=== PATIENT | male | born 1965 | race Caucasian/White ===

== ENCOUNTER → 2020-07-16 | Outpatient (CLI) | payer BC ==
[2020-07-16 18:10] LABS: APPEARANCE, URINE CLEAR (CLEAR); BACTERIA, URINE AUTO NEGATIVE (NEGATIVE); BILIRUBIN, URINE AUTO NEGATIVE (NEGATIVE); BLOOD, URINE BLOOD NEGATIVE (NEGATIVE); COLOR, URINE YELLOW (YELLOW); GLUCOSE, URINE (UA) AUTO NEGATIVE (NEGATIVE); KETONE, URINE AUTO NEGATIVE (NEGATIVE); LEUKOCYTE ESTERASE, URINE AUTO NEGATIVE (NEGATIVE); MUCUS, URINE SMALL (NEGATIVE); NITRITE, URINE AUTO NEGATIVE (NEGATIVE); PROTEIN, URINE AUTO NEGATIVE (NEGATIVE); RBC, URINE AUTO 0 /HPF (0-3); SQUAMOUS EPITHELIAL CELL UR AU 0 /HPF (0-6); UROBILINOGEN, URINE AUTO 0.2 mg/dL (0.0-2.0); WBC, URINE AUTO 0 /HPF (0-3)
== END ==
LOC: M LAB 16:22
PROVIDERS: ATTEND Urology
DX: R97.20 Elevated prostate specific antigen [PSA] (principal)

== ENCOUNTER → 2020-08-26 | Outpatient (CLI) | payer BC, SELFPAY ==
--- NOTE | 2020-08-26 12:57 | REPPI ---
INDICATION: ELEVATED PSA Elevated prostate specific antigen levels. COMPARISON: None. TECHNIQUE: Transrectal ultrasound examination. FINDINGS: Examination demonstrates enlarged heterogeneous gland with multiple scattered small cysts and calcifications. Gland measures 5.3 x 4.5 x 5.7 cm (71.3 ml). Left mid lateral nodule measuring 7 x 4 mm identified. Ultrasound-guided Biopsy performed by Dr. Silva included 12 passes with 18 gauge needle after the administration of local anesthetic. No obvious complications during examination as reported by garnett feeder. IMPRESSION: 1. Heterogeneous enlarged prostate gland with single nodule. 2. Status post biopsy. <Electronically signed by Noel Vazquez > 08/26/20 0499
== END ==
LOC: M SMT PRO 10:57
PROVIDERS: ATTEND Urology
DX: C61 Malignant neoplasm of prostate (principal)
CPT/HCPCS: 76872; G0416

== ENCOUNTER 2020-10-15 07:30 | Inpatient (IN) | payer BC ==
[~2020-10-15] VITALS: Ht 170.2 cm; Wt 118.8 kg
[~2020-10-15 07:30] MED LIST: HEPARIN SOD (PORCINE) 5000UNITS/ML 1ML VIAL/SYRINGE SQ ONE; LISI10TA22 PO; LR 1,000 ML IV ONE; ceFAZolin SOD 2 GM in IV 1 EA IV ONE
[2020-10-15] MEDS ORDERED: LIDOCAINE 2% 100MG/5ML SDV (FOR ANES.) As Ordered ONE (10:30)
[2020-10-15] MEDS ORDERED: propofoL 200 MG/20 ML VIAL As Ordered ONE ×2 (10:30→16:06)
[2020-10-15] MEDS ORDERED: ROCURONIUM BROMIDE 50 MG/5 ML VIAL As Ordered ONE ×2 (10:30→18:45)
[2020-10-15] MEDS ORDERED: fentaNYL 250 MCG/5 ML INJECTION (J3010) As Ordered ONE (10:30)
[2020-10-15] MEDS ORDERED: MIDAZOLAM INJ 2MG/2ML VIAL (J2250 PER 1MG) As Ordered ONE (10:30)
--- OUTSIDE RECORDS SUMMARY | 2020-10-15 10:40 | CCD ---
Author Author [facility] er Organization [facility] er Address Unknown Phone Unavailable Care Team Providers Care Plant Inspector Name Role Phone Yola Andre Unavailable PROBLEMS Type Condition ICD9-CM Code LEL77-DC Code Onset Dates Condition S tatus W/U Status Risk SNOMED Code Notes Problem Diverticulitis K57.92 Active confirmed 66680 6006 Problem Type 2 diabetes mellitus wit hout complication, without long-term current use of insulin E11.9 Active confirmed 718748264 Problem Dyslipidemia E78.5 Active confirmed 7015552 07 Problem Acute back pain M54.9 Active confirmed 1618 07218 Problem Environmental allergies Z91.09 Active confirmed 871763071 Problem Essential hypertension I10 Active confirmed 56328239 Problem Vitamin D deficiency E55.9 Active confirmed 26138001 ALLERGIES Allergen (clinical drug ingredient) Drug/Non Drug Allergy do cumented on EMR Reaction Allergy Type Onset Date Status Woll Unknown Non Drug Allergy Active ENCOUNTERS from 1966 to 2020-09-27 Encounter Location Date Provider Diagnosis [address] [address] Sep, Yola Andre Pre-operative clearance Z01. 818 and Type 2 diabetes mellitus without complication, without long-term current use of insulin E11.9 IMMUNIZATIONS Vaccine Route Administration Date Status Influenza (FluLaval 6+ mos) >18 yrs IM Intramuscular Jun 13 0 Administered Pneumococcal (PPSV 23) 19 or > IM Intramuscular Jun 13, 2020 Administered SOCIAL HISTORY Sex Assigned At : Social History Observation Description Sex Assigned At Unknown DAST-10 Question Answer Notes Total Score: 0 Interpretation: No problems reported REASON FOR REFERRAL No Information VITAL SIGNS Height 67 in Sep, Height-cm 170.18 cm 04 Feb, 2021 Weight 274 lbs Sep, Weight-kg 124.29 kg Sep, BMI 42.91 kg/m2 Sep, Temperature 97.8 degrees Fahrenheit Sep, Heart Rate 88 /min Sep, Respiratory Rate 18 /min Sep, Oximetry 96 % Sep, Blood pressure systolic 122 mm Hg Sep, Blood pressure diastolic 76 mm Hg Sep, MEDICATIONS Medication SIG (Take, Route, Frequency, Duration) Notes Start Da te End Date Status Lisinopril 10 MG 1 tablet Orally Once a day for 90 days Active Vitamin B12 100 MCG 1 tablet Orally Once a day Active Multi Vitamin Daily Activ e Vitamin D 25 MCG (1000 UT) 1 tablet Orally Daily Active Metformin HCl 1000 MG 1 tablet with a meal Orally twice a day fo r 30 day(s) May, Active Vitamin C 500 MG 1 tablet Orally Once a day Active PROCEDURES No Information RESULTS Component Value Reference Range CHEM 7 PROFILE Reviewed date:09/25/2020 16:30:31 Interpretation: Performing Lab: GLU 195 70-110 BUN 18 7-23 CRE 0.997 0.500-1.300 GFR > 60 CHLORIDE 104 99-110 NA 137 136-147 POTASSIUM 4.4 3.5-5.1 TCO2 25 20-33 ANION GAP 12.4 10.0-20.0 CA 8.8 8.3-10.7 HEMOGLOBIN A1C Reviewed date:09/25/2020 15:22:28 Interpretation: Performing Lab: HbA1C 6.40 3.8-5.6 EKG 07074 Reviewed date:09/25/2020 16:30:31 Interpretation: Performing Lab: CBC Reviewed date:09/26/2020 16:21:40 Interpretation: Performing Lab: WBC 9.55 4.0-10.5 RBC 5.17 4.70-6.00 Hemoglobin 15.2 14.0-18.0 Hematocrit 45.5 42.0-52.0 MCV 88.0 81.0-99.0 MCH 29.4 27.0-31.0 MCHC 33.4 32.7-35.6 RDW 13.4 11.5-14.0 Platelet count 239 150-450 MPV 10.6 6.9-9.5 Neutrophils 56.5 34-64 Lymphocytes 29.9 25-45 Monocytes 7.0 1.7-10.6 Eosinophils 5.2 0.4-7.0 Basophils 1.2 0.1-2.0 Imm. Gran. 0.2 0.1-2.0 Abs. Neutro. 5.39 1.2-7.6 Abs. Lymph. 2.86 1.0-3.5 Abs. Tom [place]. 0.67 0.1-1.0 Abs. Eosin. 0.50 0.1-0.7 Abs. Baso. 0.11 0.0-0.1 Abs. Imm. Gran. 0.02 0.0-0.1 ANRBC% 0 0 REASON FOR VISIT PRE OP RADICAL PROSTECTIMY MEDICAL (GENERAL) HISTORY Type Description Date Medical History Environmental allergies Medical History Diverticulitis Medical History Hypertension Surgical History Appendectomy Surgical History Colon resection Hospitalization History See surgical list Goals Section No Information Health Concerns No Information MEDICAL EQUIPMENT No Information MENTAL STATUS No Information FUNCTIONAL STATUS No Information ASSESSMENTS Encounter Date Diagnosis Assessment Notes Treatment Notes Treatm ent Clinical Notes Sep, Pre-operative clearance (ICD-10 - Z01.818) DO NOT EAT OR DRINK ANYTHING ON THE DAY OF YOUR SURGERY/ PROCEDURE EXCEPT YOUR MEDICATIONS WITH A SIP OF WATER Hold all herbal and over the counter medications 7 days prior to surgery and resume the day following surgery Hold aspirin 3-7 days prior to surgery and resume the day following surgery based on the discretion and guidance of the surgeon You may continue Lisinopril on the day of surgery Hold Metformin on the day of surgery -Physical exam is remarkable for a male with elevated BMI; vitals are stable -The patient has a calculated Revised Cardiac Risk Index Score of 0 (Class I) suggestive of 3.9% risk of a major cardiac event during surgery -Relevant labs have been ordered and reviewed for pre-op clearance -EKG was reviewed today and significant for sinus rhythem with HR of 80 -Based on the past medical history and ongoing chronic conditions, this patient is at average risk for the planned procedure and is currently medically optimized for the urological procedure under general anesthesia -Medications to be held prior to procedure were discussed in detail with the patient and given as part of written instructions -Patient verbalized understanding the above plan Sep, Type 2 diabetes mellitus wit hout complication, without long-term current use of insulin (ICD-10 - E11.9) PLAN OF TREATMENT Treatment Notes Assessment Notes Clinical Notes Pre-operative clearance DO NOT EAT OR DRINK ANYTHING ON THE DAY OF YOUR SURGERY/ PROCEDURE EXCEPT YOUR MEDICATIONS WITH A SIP OF WATERHold all herbal and over the counter medications 7 days prior to surgery and resume the day following surgeryHold aspirin 3-7 days prior to surgery and resume the day following surgery based on the discretion and guidance of the surgeonYou may continue Lisinopril on the day of surgeryHold Metformin on the day of surgery -Physical exam is remarkable for a male with elevated BMI; vitals are stable-The patient has a calculated Revised Cardiac Risk Index Score of 0 (Class I) suggestive of 3.9% risk of a major cardiac event during surgery-Relevant labs have been ordered and reviewed for pre-op clearance-EKG was reviewed today and significant for sinus rhythem with HR of 80-Based on the past medical history and ongoing c hronic conditions, this patient is at average risk for the planned procedure and is currently medically optimized for the urological procedure under general anesthesia-Medications to be held prior to procedure were discussed in detail with the patient and given as part of written instructions-Patient verbalized understanding the above plan Next Appt Details As scheduled with PCP Reason: Insurance Providers Payer Name Payer Address Payer Phone Insured Name Patient Relati onship to Insured Coverage Start Date Coverage End Date [employer] [address] [address] [place] [address] IRINA ROTHMAN self
--- OUTSIDE RECORDS SUMMARY | 2020-10-15 10:40 | CCD ---
Author Author [facility] er Organization [facility] er Address Unknown Phone Unavailable Care Team Providers Care Tour Counselor Name Role Phone Makenzie Tripathi Unavailable PROBLEMS Type Condition ICD9-CM Code LJT63-MD Code Onset Dates Condition S tatus W/U Status Risk SNOMED Code Notes Problem Diverticulitis K57.92 Active confirmed 54671 6006 Problem Type 2 diabetes mellitus wit hout complication, without long-term current use of insulin E11.9 Active confirmed 881137325 Problem Dyslipidemia E78.5 Active confirmed 3720257 07 Problem Acute back pain M54.9 Active confirmed 1618 85903 Problem Environmental allergies Z91.09 Active confirmed 177000713 Problem Essential hypertension I10 Active confirmed 46328365 Problem Vitamin D deficiency E55.9 Active confirmed 23106616 ALLERGIES Allergen (clinical drug ingredient) Drug/Non Drug Allergy do cumented on EMR Reaction Allergy Type Onset Date Status Woll Unknown Non Drug Allergy Active ENCOUNTERS from 1966 to 2020-09-27 Encounter Location Date Provider Diagnosis [address] [address] Sep, Makenzie Chudasama-Emery IMMUNIZATIONS Vaccine Route Administration Date Status Influenza (FluLaval 6+ mos) >18 yrs IM Intramuscular Jun 13 0 Administered Pneumococcal (PPSV 23) 19 or > IM Intramuscular Jun 13, 2020 Administered SOCIAL HISTORY Sex Assigned At : Social History Observation Description Sex Assigned At Unknown DAST-10 Question Answer Notes Total Score: 0 Interpretation: No problems reported REASON FOR REFERRAL No Information VITAL SIGNS No information MEDICATIONS Medication SIG (Take, Route, Frequency, Duration) [...] a day Active PROCEDURES No Information RESULTS No Results REASON FOR VISIT Labs MEDICAL (GENERAL) HISTORY Type Description Date Medical History Environmental allergies Medical History Diverticulitis Medical History Hypertension Surgical History Appendectomy Surgical History Colon resection Hospitalization History See surgical list Goals Section No Information Health Concerns No Information MEDICAL EQUIPMENT No Information MENTAL STATUS No Information FUNCTIONAL STATUS No Information ASSESSMENTS No Information PLAN OF TREATMENT No Information Insurance Providers Payer Name Payer Address Payer Phone Insured Name Patient Relati onship to Insured Coverage Start Date Coverage End Date [facility] [address] [address] [place] [address] IRINA ROTHMAN T self
--- OUTSIDE RECORDS SUMMARY | 2020-10-15 10:41 | CCD ---
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 Active 2366 36262 Problem Raised prostate specific antigen R97.20 Active 923775184 Problem Prostate cancer C61 Active 516660749 ALLERGIES No Known Allergies ENCOUNTERS from 1965 to 2020-09-13 Encounter Location Date Provider Diagnosis [facility] Urology [address] [place] [address] [place] [address] Aug Faith Breaux Preop testing Z01.818 IMMUNIZATIONS No Information SOCIAL HISTORY Tobacco Use: Social History Observation Description Date Details (start date - stop date) Never Smoker Sex Assigned At : Social History Observation Description Sex Assigned At Unknown Language: Question Answer Notes Languages spoken: Arabic Sexual Hx: Question Answer Notes Had sex in the last 12 months (vaginal, oral, or anal)? Yes Have you ever had an STD? No Prevention Strategies discussed: Other with Women only Use protection? No Alcohol Screening: Question Answer Notes Did you have a drink containing alcohol in the past year? Ye s Points 2 Interpretation Negative How often did you have six or more drinks on one occas ion in the past year? Never (0 points) How many drinks did you have on a typica l day when you were drinking in the past year? 1 or 2 (0 points) How often did you have a drink containing alcohol in t he past year? Two to four times a month (2 points) Tobacco Use: Question Answer Notes Are you a: never smoker REASON FOR REFERRAL No Information VITAL SIGNS No information MEDICATIONS Medication SIG (Take, Route, Frequency, Duration) Notes Start Da te End Date Status Vitamin D3 25 MCG (1000 UT) 1 capsule Orally Once a day for 30 day(s) Active Metformin HCl 500 MG 1 tablet with a meal Orally bid Active Lisinopril 10 MG 1 tablet Orally Once a day for 30 day(s) Active Black Elderberry 50 MG/5ML Orally daily Active Vitamin B12 TR 2000 MCG 1 tablet Orally Once a day for 30 day(s) Active Multi Complete - as directed Orally Active Bactrim DS 800-160 MG 1 tablet Orally as directed- 1 tab the night before biops and 1 tab the morning of Jul, Active Vitamin C 1000 MG 1 tablet Orally Once a day for 30 day(s) Active PROCEDURES No Information RESULTS No Results REASON FOR VISIT Covid Test MEDICAL (GENERAL) HISTORY Type Description Date Medical History DIVERTICULITIS Medical History HTN Medical History DM TYPE 2 Medical History DYSLIPIDEMIA Surgical History APPENDECTOMY 1996 Surgical History COLON RESECTION 2007 Hospitalization History surgeries listed above Goals Section No Information Health Concerns No Information MEDICAL EQUIPMENT No Information MENTAL STATUS No Information FUNCTIONAL STATUS No Information ASSESSMENTS Encounter Date Diagnosis Assessment Notes Treatment Notes Treatm ent Clinical Notes Aug, Preop testing (ICD-10 - Z01.818) PLAN OF TREATMENT Treatment Notes Test Name Order Date Coronavirus 2019 NOSE (Send Out) COVID 2020-09-13 Next Appt Details Provider Name:Jose Vu Ricardo, 08:00:00 AM, [address], [place], [address], Insurance Providers Payer Name Payer Address Payer Phone Insured Name Patient Relati onship to Insured Coverage Start Date Coverage End Date [employer] [place] PPO [phone] [facility] [place] [id number] GIULIANA SANTA self
--- OUTSIDE RECORDS SUMMARY | 2020-10-15 10:41 | CCD ---
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 Active 2366 72626 Problem Raised prostate specific antigen R97.20 Active 396434650 ALLERGIES No Known Allergies ENCOUNTERS from 1965 to 2020-08-28 Encounter Location Date Provider Diagnosis [facility] Urology [address] [place] [address] [place] [address] Aug Josejose Chahaller Raised prostate specific antigen R97.20 IMMUNIZATIONS No Information SOCIAL HISTORY Tobacco Use: Social History Observation Description Date Details (start date - stop date) Never Smoker Sex Assigned At : Social History Observation Description Sex Assigned At Unknown Language: Question Answer Notes Languages spoken: Lao Sexual Hx: Question Answer Notes Had sex [...] REASON FOR REFERRAL No Information VITAL SIGNS Weight 265.4 lbs Aug, Height 67 in Aug, BMI 41.56 kg/m2 Aug, Heart Rate 88 /min Aug, Respiratory Rate 18 /min Aug, Temperature 97.4 degrees Fahrenheit Aug, Oximetry 97% Aug, Blood pressure systolic 132 mm Hg Aug, Blood pressure diastolic 89 mm Hg Aug, MEDICATIONS Medication SIG (Take, Route, Frequency, Duration) Notes Start Da te End Date Status Bactrim DS 800-160 MG 1 tablet Orally as directed- 1 tab the night before biops and 1 tab the morning of Jul, Active Vitamin B12 TR 2000 MCG 1 tablet Orally Once a day for 30 day(s) Active Vitamin D3 25 MCG (1000 UT) 1 capsule Orally Once a day for 30 day(s) Active Lisinopril 10 MG 1 tablet Orally Once a day for 30 day(s) Active Black Elderberry 50 MG/5ML Orally daily Active Metformin HCl 500 MG 1 tablet with a meal Orally bid Active Vitamin C 1000 MG 1 tablet Orally Once a day for 30 day(s) Active Multi Complete - as directed Orally Active PROCEDURES No Information RESULTS No Results REASON FOR VISIT Trus Bx MEDICAL (GENERAL) HISTORY Type Description Date Medical [...] Treatment Notes Treatm ent Clinical Notes Aug, Raised prostate specific antigen (ICD-10 - R97.2 0) PLAN OF TREATMENT Medication Medication Name Sig Start Date Stop Date Bactrim DS 800-160 MG 1 tablet Orally as directed- 1 tab the night before biops and 1 tab the morning of Jul, Treatment Notes Test Name Order Date Pathology Request For Service (Urology Only) 7 Next Appt Details next week for pathology results Reason: Provider Name:Jose Horace Silva, 03:00:00 PM, [address], [place], [address], Insurance Providers Payer Name Payer Address Payer Phone Insured Name Patient Relati onship to Insured Coverage Start Date Coverage End Date [facility] [phone] [facility] [phone] GIULIANA ROTHMAN self
--- OUTSIDE RECORDS SUMMARY | 2020-10-15 10:41 | CCD ---
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 Active 2366 92536 Problem Raised prostate specific antigen R97.20 Active 664120459 ALLERGIES No Known Allergies ENCOUNTERS from 1965 to 2020-08-27 Encounter Location Date Provider Diagnosis [facility] Urology [address] [place] [address] [place] [address] Aug Jose Silva IMMUNIZATIONS No Information SOCIAL HISTORY Tobacco Use: Social History Observation Description Date Details (start date - stop date) Never Smoker Sex Assigned At : Social History Observation Description Sex Assigned At Unknown Language: Question Answer Notes Languages spoken: Solomon Islander Sexual Hx: Question Answer Notes Had sex [...] Information RESULTS No Results REASON FOR VISIT lab spec MEDICAL (GENERAL) HISTORY Type Description Date Medical History DIVERTICULITIS Medical History HTN Medical History DM TYPE 2 Medical History DYSLIPIDEMIA Surgical History APPENDECTOMY 1996 Surgical History COLON RESECTION 2007 Hospitalization History surgeries listed above Goals Section No Information Health Concerns No Information MEDICAL EQUIPMENT No Information MENTAL STATUS No Information FUNCTIONAL STATUS No Information ASSESSMENTS No Information PLAN OF TREATMENT Medication Medication Name Sig Start Date Stop Date Bactrim DS 800-160 MG 1 tablet Orally as directed- 1 tab the night before biops and 1 tab the morning of Jul, Next Appt Details Provider Name:Jose Silva, 03:00:00 PM, [address], [place], [address], Insurance Providers Payer Name Payer Address Payer Phone Insured Name Patient Relati onship to Insured Coverage Start Date Coverage End Date [facility] [phone] [facility] [address] GIULIANA ROTHMAN self
--- OUTSIDE RECORDS SUMMARY | 2020-10-15 10:41 | CCD ---
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 Active 2366 50475 Problem Raised prostate specific antigen R97.20 Active 169930964 ALLERGIES No Known Allergies ENCOUNTERS from 1965 to 2020-08-11 Encounter Location Date Provider Diagnosis [facility] U[facility] [address] [place] [address] [place] [address] Jun Martin Sy Raised prostate specific antigen R97.20 and Bladder outflow obstruction N32.0 IMMUNIZATIONS No Information SOCIAL HISTORY Tobacco Use: Social History Observation Description Date Details (start date - stop date) Never Smoker Sex Assigned At : Social History Observation Description Sex Assigned At Unknown Language: Question Answer Notes Languages spoken: Tajik Sexual Hx: Question Answer Notes Had sex [...] FOR REFERRAL No Information VITAL SIGNS Weight 266 lbs Jun, Height 67 in Jun, BMI 41.66 kg/m2 Jun, Heart Rate 96 /min Jun, Respiratory Rate 18 /min Jun, Temperature 97.0 degrees Fahrenheit Jun, Oximetry 95% Jun, Blood pressure systolic 130 mm Hg Jun, Blood pressure diastolic 78 mm Hg Jun, MEDICATIONS Medication SIG (Take, Route, Frequency, Duration) [...] Information RESULTS No Results REASON FOR VISIT elevated psa MEDICAL (GENERAL) HISTORY Type Description Date Medical [...] Notes Treatment Notes Treatm ent Clinical Notes Jun, Raised prostate specific antigen (ICD-10 - R97.2 0) Given his mild symptoms, I will clinically observe without meds for now. I will recheck his PSA and use that to decide whether or not to biopsy. Jun, Bladder outflow obstruction (ICD-10 - N32.0) PLAN OF TREATMENT Medication Medication Name Sig Start Date Stop Date Bactrim DS 800-160 MG 1 tablet Orally as directed- 1 tab the night before biops and 1 tab the morning of Jul, Treatment Notes Assessment Notes Clinical Notes Raised prostate specific antigen Given h is mild symptoms, I will clinically observe without meds for now. I will recheck his PSA and use that to decide whether or not to biopsy. Future Test Test Name Order Date PSA FREE & TOTAL [id number] uro PVR (Post Voiding Residual) Bladder Scan 20200716 UA URINALYSIS 20200716 Next Appt Details Provider Name:Jose Silva, 10:45:00 AM, [address], [place], [address], Provider Name:Jose Silva, 03:00:00 PM, [address], [place], [address], Insurance Providers Payer Name Payer Address Payer Phone Insured Name Patient Relati onship to Insured Coverage Start Date Coverage End Date [facility] [phone] [facility] [address] GIULIANA ROTHMAN self
--- OUTSIDE RECORDS SUMMARY | 2020-10-15 10:41 | CCD ---
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 Active 5790 16540 ALLERGIES No Known Allergies ENCOUNTERS from 1965 to 2020-09-03 Encounter Location Date Provider Diagnosis [facility] Urology [address] [place] [address] Aug Jose Silva Prostate cancer C61 IMMUNIZATIONS No Information SOCIAL HISTORY Tobacco Use: Social History Observation Description Date Details (start date - stop date) Never Smoker Sex Assigned At : Social History Observation Description Sex Assigned At Unknown Language: Question Answer Notes Languages spoken: Niuean Sexual Hx: Question Answer Notes Had sex [...] Information RESULTS No Results REASON FOR VISIT TRUS bx f/u MEDICAL (GENERAL) HISTORY Type Description Date Medical [...] Treatment Notes Treatm ent Clinical Notes Aug, Prostate cancer (ICD-10 - C61) Prostate cancer material was printed,Prostatectomy material was printed - pathology results discussed - treatment options as well as side effects discussed - f/u in 2-3 wks to decide on treatment PLAN OF TREATMENT Treatment Notes Assessment Notes Clinical Notes Prostate cancer Prostate cancer material was printed,Prostatectomy material was printed - pathology results discussed- treatment options as well as side effects discussed- f/u in 2-3 wks to decide on treatment Next Appt Details 2 Weeks Reason:prostate cancer Provider Name:Jose Silva, 10:30:00 AM, [address], [place], [address], Follow Up:2 Weeksprostate cancer Insurance Providers Payer Name Payer Address Payer Phone Insured Name Patient Relati onship to Insured Coverage Start Date Coverage End Date [employer] [place] P[place] [phone] [facility] [employer] [place] [address] GIULIANA SANTA self
--- OUTSIDE RECORDS SUMMARY | 2020-10-15 10:41 | CCD ---
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 2366 30887 Problem Raised prostate specific antigen R97.20 Active 953281319 ALLERGIES No Known Allergies ENCOUNTERS from 1965 to 2020-07-26 Encounter Location Date Provider Diagnosis [facility] Urology [address] [place] [address] [place] [address] Jul Martin Sy Raised prostate specific antigen R97.20 IMMUNIZATIONS No [...] Information RESULTS No Results REASON FOR VISIT PSA MEDICAL (GENERAL) HISTORY Type Description Date Medical [...] Notes Treatment Notes Treatm ent Clinical Notes Jul, Raised prostate specific antigen (ICD-10 - R97.2 0) PLAN OF TREATMENT Medication Medication Name Sig Start Date Stop Date Bactrim DS 800-160 MG 1 tablet Orally as directed- 1 tab the night before biops and 1 tab the morning of Jul, Treatment Notes Test Name Order Date SMT PROSTATE BIOPSY 2020-07-26 Next Appt Details Provider Name:Jose Silva, 10:45:00 AM, [address], [place], [address], Provider Name:Jose Silva, 03:00:00 PM, [address], [place], [address], Insurance Providers Payer Name Payer Address Payer Phone Insured Name Patient Relati onship to Insured Coverage Start Date Coverage End Date [facility] [phone] [facility] [phone] GIULIANA ROTHMAN self
--- OUTSIDE RECORDS SUMMARY | 2020-10-15 10:41 | CCD ---
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 818 and UTI (urinary tract infection) N39.0 IMMUNIZATIONS No Information SOCIAL HISTORY Tobacco Use: Social History Observation Description Date Details (start date - stop date) Never Smoker Sex Assigned At : Social History Observation Description Sex Assigned At Unknown Language: Question Answer Notes Languages spoken: South African Sexual Hx: Question Answer Notes Had sex [...] Information RESULTS No Results REASON FOR VISIT surgery MEDICAL (GENERAL) HISTORY Type Description Date Medical [...] Notes Aug, Prostate cancer (ICD-10 - C61) Aug, Preop testing (ICD-10 - Z01.818) Aug, UTI (urinary tract infection) (ICD-10 - N39.0) PLAN OF TREATMENT Treatment Notes Test Name Order Date CBC - Complete Blood Count 2020-09-09 PT & APTT 2020-09-09 URINE CULTURE 2020-09-09 Basic Metabolic Profile (BMP) 2020-09-09 [facility] Chest, 2 view (PA\Lat) 2020-09-09 Electrocardiogram (EKG) 2020-09-09 Insurance Providers Payer Name Payer Address Payer Phone Insured Name Patient Relati onship to Insured Coverage Start Date Coverage End Date BCBS [place] PPO [phone] [facility] [place] [employer] [email or web address] [address] GIULIANA ROTHMAN self
--- OUTSIDE RECORDS SUMMARY | 2020-10-15 10:41 | CCD ---
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 Name Role Phone NAGRAREMARIAA MD Unavailable Unavailable NAGRARE, MARIAA MD Unavailable Unavailable NAGRARE, MARIAA MD Unavailable Unavailable NAGRARE, MARIAA MD Unavailable Unavailable NAGRARE, MARIAA MD Unavailable Unavailable NAGRARE, MARIAA MD Unavailable Unavailable NAGRARE, MARIAA MD Unavailable Unavailable NAGRARE, MARIAA MD Unavailable Unavailable NAGRARE, MARIAA MD Unavailable Unavailable NAGRARE, MARIAA MD Unavailable Unavailable NAGRARE, MARIAA MD Unavailable Unavailable NAGRARE, MARIAA MD Unavailable Unavailable NAGRARE, MARIAA MD Unavailable Unavailable NAGRARE, MARIAA MD Unavailable Unavailable NAGRARE, MARIAA MD Unavailable Unavailable NAGRARE, MARIAA MD Unavailable Unavailable NAGRARE, MARIAA MD Unavailable Unavailable NAGRARE, MARIAA MD Unavailable Unavailable NAGRARE, MARIAA MD Unavailable Unavailable NAGRARE, MARIAA MD Unavailable Unavailable NAGRARE, MARIAA MD Unavailable Unavailable NAGRARE, MARIAA MD Unavailable Unavailable NAGRARE, MARIAA MD Unavailable Unavailable NAGRARE, MARIAA MD Unavailable Unavailable NAGRARE, MARIAA MD Unavailable Unavailable Annemarie Contreras CLIENT RELATIONS ASSOCIATE Unavailable Unavailable Ben, Sharpe Sara CLIENT RELATIONS ASSOCIATE Unavailable Unavailable Ben, Sharpe Sara CLIENT RELATIONS ASSOCIATE Unavailable Unavailable Ben, Sharpe Sara CLIENT RELATIONS ASSOCIATE Unavailable Unavailable Ben, Sharpe Sara CLIENT RELATIONS ASSOCIATE Unavailable Unavailable Ben, Sharpe Sara CLIENT RELATIONS ASSOCIATE Unavailable Unavailable Ben, Sharpe Sara CLIENT RELATIONS ASSOCIATE Unavailable Unavailable Ben, Sharpe Sara CLIENT RELATIONS ASSOCIATE Unavailable Unavailable Ben, Sharpe Sara CLIENT RELATIONS ASSOCIATE Unavailable Unavailable Ben, Sharpe Sara CLIENT RELATIONS ASSOCIATE Unavailable Unavailable Ben, Sharpe Sara CLIENT RELATIONS ASSOCIATE Unavailable Unavailable Ben, Sharpe Sara CLIENT RELATIONS ASSOCIATE Unavailable Unavailable Ben, Sharpe Sara CLIENT RELATIONS ASSOCIATE Unavailable Unavailable Ben, Sharpe Sara CLIENT RELATIONS ASSOCIATE Unavailable Unavailable Ben, Sharpe Sara CLIENT RELATIONS ASSOCIATE Unavailable Unavailable Ben, Sharpe Sara CLIENT RELATIONS ASSOCIATE Unavailable Unavailable Ben, Sharpe Sara CLIENT RELATIONS ASSOCIATE Unavailable Unavailable Ben, Sharpe Sara CLIENT RELATIONS ASSOCIATE Unavailable Unavailable Ben, Sharpe Sara CLIENT RELATIONS ASSOCIATE Unavailable Unavailable Ben, Sharpe Sara CLIENT RELATIONS ASSOCIATE Unavailable Unavailable Ben, Sharpe Sara CLIENT RELATIONS ASSOCIATE Unavailable Unavailable Ben, Sharpe Sara CLIENT RELATIONS ASSOCIATE Unavailable Unavailable Ben, Sharpe Sara CLIENT RELATIONS ASSOCIATE Unavailable Unavailable Ben, Shapre Sara CLIENT RELATIONS ASSOCIATE Unavailable Unavailable Ben, Sharpe Sara CLIENT RELATIONS ASSOCIATE Unavailable Unavailable Ben, Sharpe Sara CLIENT RELATIONS ASSOCIATE Unavailable Unavailable Bear, Swetha White MD Unavailable Unavailable Bear, Swetha White MD Unavailable Unavailable Bear, Swetha White MD Unavailable Unavailable Bear, Swetha White MD Unavailable Unavailable Bear, Swetha White MD Unavailable Unavailable Bear, Swetha White MD Unavailable Unavailable Bear, Swetha White MD Unavailable Unavailable Bear, Swetha White MD Unavailable Unavailable Chudasama-Emery, A Makenzie CLIENT RELATIONS ASSOCIATE Unavailable Unavailab le Chudasama-Emery, A Makenzie CLIENT RELATIONS ASSOCIATE Unavailable Unavailab le Chudasama-Emery, A Makenzie CLIENT RELATIONS ASSOCIATE Unavailable Unavailab le Chudasama-Emery, A Makenzie CLIENT RELATIONS ASSOCIATE Unavailable Unavailab le Chudasama-Emery, A Makenzie CLIENT RELATIONS ASSOCIATE Unavailable Unavailab le Chudasama-Emery, A Makenzie CLIENT RELATIONS ASSOCIATE Unavailable Unavailab le Chudasama-Emery, A Makenzie CLIENT RELATIONS ASSOCIATE Unavailable Unavailab le Chudasama-Emery, A Makenzie CLIENT RELATIONS ASSOCIATE Unavailable Unavailab le Chudasama-Emery, A Makenzie CLIENT RELATIONS ASSOCIATE Unavailable Unavailab le Chudasama-Emery, A Makenzie CLIENT RELATIONS ASSOCIATE Unavailable Unavailab le Chudasama-Emery, A Makenzie CLIENT RELATIONS ASSOCIATE Unavailable Unavailab le Chudasama-Emery, A Makenzie CLIENT RELATIONS ASSOCIATE Unavailable Unavailab le Chudasama-Emery, A Makenzie CLIENT RELATIONS ASSOCIATE Unavailable Unavailab le Chudasama-Emery, A Makenzie CLIENT RELATIONS ASSOCIATE Unavailable Unavailab le Chudasama-Emery, A Makenzie CLIENT RELATIONS ASSOCIATE Unavailable Unavailab le Chudasama-Emery, A Makenzie CLIENT RELATIONS ASSOCIATE Unavailable Unavailab le Chudasama-Emery, A Makenzie CLIENT RELATIONS ASSOCIATE Unavailable Unavailab le Chudasama-Emery, A Makenzie CLIENT RELATIONS ASSOCIATE Unavailable Unavailab le Chudasama-Emery, A Makenzie CLIENT RELATIONS ASSOCIATE Unavailable Unavailab le Chudasama-Emery, A Makenzie CLIENT RELATIONS ASSOCIATE Unavailable Unavailab le Chudasama-Emery, A Makenzie CLIENT RELATIONS ASSOCIATE Unavailable Unavailab le Recore, Faith Jenny WHNP Unavailable Unavailable Recore, Faith Jenny WHNP Unavailable Unavailable Recore, Faith Jenny WHNP Unavailable Unavailable Recore, Faith Jenny WHNP Unavailable Unavailable Recore, Faith Jenny WHNP Unavailable Unavailable Recore, Faith Jenny WHNP Unavailable Unavailable Recore, Faith Jenny WHNP Unavailable Unavailable Recore, Faith Jenny WHNP Unavailable Unavailable Recore, Faith Jenny WHNP Unavailable Unavailable Recore, Faith Jenny WHNP Unavailable Unavailable Recore, Faith Jenny WHNP Unavailable Unavailable Recore, Faith Jenny WHNP Unavailable Unavailable Recore, Faith Jenny WHNP Unavailable Unavailable Recore, Faith Jenny WHNP Unavailable Unavailable Recore, Faith Jenny WHNP Unavailable Unavailable Recore, Faith Jenny WHNP Unavailable Unavailable Recore, Faith Jenny WHNP Unavailable Unavailable Recore, Faith Jenny WHNP Unavailable Unavailable Recore, Faith Jenny WHNP Unavailable Unavailable Recore, Faith Jenny WHNP Unavailable Unavailable Recore, Faith Jenny WHNP Unavailable Unavailable Recore, Faith Jenny WHNP Unavailable Unavailable Recore, Faith Jenny WHNP Unavailable Unavailable Recore, Faith Jenny WHNP Unavailable Unavailable Recore, Faith Jenny WHNP Unavailable Unavailable Recore, Faith Jenny WHNP Unavailable Unavailable Recore, Faith Jenny WHNP Unavailable Unavailable Recore, Faith Jenny WHNP Unavailable Unavailable Recore, Faith Jenny WHNP Unavailable Unavailable Recore, Faith Jenny WHNP Unavailable Unavailable Recore, Faith Jenny WHNP Unavailable Unavailable Recore, Faith Jenny WHNP Unavailable Unavailable Recore, Faith Jenny WHNP Unavailable Unavailable Re-disclosure Warning The records that you are about to access may contain information from federally-assisted alcohol or drug abuse programs. If such information is present, then the following federally mandated warning applies: This information has been disclosed to you from records protected by federal confidentiality rules (42 CFR part 2). The federal rules prohibit you from making any further disclosure of this information unless further disclosure is expressly permitted by the written consent of the person to whom it pertains or as otherwise permitted by 42 CFR part 2. A general authorization for the release of medical or other information is NOT sufficient for this purpose. The Federal rules restrict any use of the information to criminally investigate or prosecute any alcohol or drug abuse patient.The records that you are about to access may contain highly sensitive health information, the redisclosure of which is protected by Article 27-F of the [facility] Public Health law. If you continue you may have access to information: Regarding HIV / AIDS; Provided by facilities licensed or operated by the [facility] Office of Mental Health; or Provided by the [facility] Office for People With Developmental Disabilities. If such information is present, then the following [facility] mandated warning applies: This information has been disclosed to you from confidential records which are protected by state law. State law prohibits you from making any further disclosure of this information without the specific written consent of the person to whom it pertains, or as otherwise permitted by law. Any unauthorized further disclosure in violation of state law may result in a fine or skilled nursing sentence or both. A general authorization for the release of medical or other information is NOT sufficient authorization for further disc losure. Encounters Encounter Providers Location Date Indications Data Source(s ) Outpatient Attender: Makenzie Tripathi [facility] 10/13/2020 04:30:00 PM [facility] Outpatient Attender: Faithabdiel IRIZARRY ER-LAB-PNP 10/10/2020 10:32:00 AM EST [facility] Outpatient Attender: MARIAA CHAVIRA MD [facility] 09/25/2020 07:24:00 AM EST [facility] Admission cancelled. Disregard status an d admitted date. Outpatient [address] [facility] [address] [place] [address] 09/25/2020 12:00:00 AM EST eCW1 ([facility]) Outpatient [address] [facility] [address] [place] [address] 09/25/2020 12:00:00 AM EST eCW1 ([facility]) Unknown [address] [facility] [address] 09/11/2020 12:00:00 AM EST eCW1 ([facility]) Outpatient [address] [facility] [address] [facility] [place] [place] [address] 09/11/2020 12:00:00 AM EST eCW1 ([facility]) Unknown [address] [facility] [address] 09/05/2020 12:00:00 AM EST eCW1 ([facility]) Outpatient [address] [facility] [address] 09/01/2020 12:00:00 AM EST eCW1 ([facility]) (Trus Bx2) Urology [address] [place] [address] 08/26/2020 12:00:00 AM EST eCW1 ([facility]) Unknown [address] [facility] [address] 08/26/2020 12:00:00 AM EST eCW1 ([facility]) Unknown [address] [facility] [address] 07/24/2020 12:00:00 AM EST eCW1 ([facility]) Outpatient [address] [facility] [address] 07/16/2020 12:00:00 AM EST eCW1 ([facility]) Outpatient [address] [facility] [address] [place] [address] 07/03/2020 12:00:00 AM EST eCW1 ([facility]) Outpatient Attender: Cindy Sifuentes MD [facility] 06/23/2020 08 :40:00 AM EST [facility] Outpatient [address] [facility] [address] [place] [address] 06/18/2020 12:00:00 AM EDT eCW1 ([facility]) Outpatient Att[facility]: [facility] 06/13/2020 09:47:00 AM EDT [facility] Outpatient [address] [facility] [address] [place] [address] 06/13/2020 12:00:00 AM EDT eCW1 ([facility]) Outpatient [address] [facility] [address] [place] [address] 05/22/2020 12:00:00 AM EDT eCW1 ([facility]) Outpatient [address] [facility] [address] [place] [address] 05/21/2020 12:00:00 AM EDT eCW1 ([facility]) Outpatient Attender: Makenzie MUHAMMAD 0 03:52:00 PM EDT [facility] Outpatient [address] [facility] [address] [place] [address] 05/20/2020 12:00:00 AM EDT eCW1 ([facility]) Outpatient [address] [facility] [address] [place] [address] 05/20/2020 12:00:00 AM EDT eCW1 ([facility]) Outpatient [address] [facility] [address] [place] [address] 03/27/2020 12:00:00 AM EDT eCW1 ([facility]) Outpatient Attender: Makenzie [facility] 03/14/2020 08:42:00 AM EDT [facility] Outpatient [address] [facility] [address] [place] [address] 03/14/2020 12:00:00 AM EDT eCW1 ([facility]) Outpatient [address] [place] [address] 03/14/2020 12:00:00 AM EDT [facility] Attender: Makenzie Tripathi [facility] 02/07/2020 09:33:00 AM EDT [facility] Outpatient [address] [place] [address] 02/07/2020 12:00:00 AM EDT [facility]: [facility] 08/18/2018 09:18:0 0 AM EST [facility] Outpatient Attender: [facility] 01/12/2018 02:43:0 0 PM EDT [facility] Immunizations Vaccine Date Status Description Data Source(s) pneumococcal polysaccharide PPV23 06/13/2020 09:10:00 AM EDT comple nichole eCW1 ([facility]) New in 2011. IIV4 06/13/2020 09:10:00 AM EDT completed eCW1 ([facility]) pneumococcal polysaccharide PPV23 06/13/2020 09:10:00 AM EDT comple nichole eCW1 ([facility]) New in 2011. IIV4 06/13/2020 09:10:00 AM EDT completed eCW1 ([facility]) pneumococcal polysaccharide PPV23 06/13/2020 09:10:00 AM EDT comple nichole eCW1 ([facility]) New in 2011. IIV4 06/13/2020 09:10:00 AM EDT completed eCW1 ([facility]) pneumococcal polysaccharide PPV23 06/13/2020 09:10:00 AM EDT comple nichole eCW1 ([facility]) New in 2011. IIV4 06/13/2020 09:10:00 AM EDT completed eCW1 ([facility]) pneumococcal polysaccharide PPV23 06/13/2020 09:10:00 AM EDT comple nichole eCW1 ([facility]) New in 2011. IIV4 06/13/2020 09:10:00 AM EDT completed eCW1 ([facility]) pneumococcal polysaccharide PPV23 06/13/2020 09:10:00 AM EDT comple nichole eCW1 ([facility]) New in 2011. IIV4 06/13/2020 09:10:00 AM EDT completed eCW1 ([facility]) Medications Medication Brand Name Start Date Product Form Dose Route Admi nistrative Instructions Pharmacy Instructions Status Indications Reaction Description Data Source(s) Sulfamethoxazole 800 MG / Trimethoprim 1 60 MG Oral Tablet [Bactrim] Bactrim DS 800-160 MG Bactrim DS 800-160 MG 07/25/2020 12:00:00 AM EST 1.0 {table t} active Bactrim DS 800-160 MG eCW1 ( [facility]) Sulfamethoxazole 800 MG / Trimethoprim 1 60 MG Oral Tablet [Bactrim] Bactrim DS 800-160 MG Bactrim DS 800-160 MG 07/25/2020 12:00:00 AM EST 1.0 {table t} active Bactrim DS 800-160 MG eCW1 ( [facility]) Sulfamethoxazole 800 MG / Trimethoprim 1 60 MG Oral Tablet [Bactrim] Bactrim DS 800-160 MG Bactrim DS 800-160 MG 07/25/2020 12:00:00 AM EST 1.0 {table t} active Bactrim DS 800-160 MG eCW1 ( [facility]) Sulfamethoxazole 800 MG / Trimethoprim 1 60 MG Oral Tablet [Bactrim] Bactrim DS 800-160 MG Bactrim DS 800-160 MG 07/25/2020 12:00:00 AM EST 1.0 {table t} active Bactrim DS 800-160 MG eCW1 ( [facility]) Sulfamethoxazole 800 MG / Trimethoprim 1 60 MG Oral Tablet [Bactrim] Bactrim DS 800-160 MG Bactrim DS 800-160 MG 07/25/2020 12:00:00 AM EST 1.0 {table t} active Bactrim DS 800-160 MG eCW1 ( [facility]) Sulfamethoxazole 800 MG / Trimethoprim 1 60 MG Oral Tablet [Bactrim] Bactrim DS 800-160 MG Bactrim DS 800-160 MG 07/25/2020 12:00:00 AM EST 1.0 {table t} active Bactrim DS 800-160 MG eCW1 ( [facility]) Sulfamethoxazole 800 MG / Trimethoprim 1 60 MG Oral Tablet [Bactrim] Bactrim DS 800-160 MG Bactrim DS 800-160 MG 07/25/2020 12:00:00 AM EST 1.0 {table t} active Bactrim DS 800-160 MG eCW1 ( [facility]) Metformin hydrochloride 1000 MG Oral Tablet Metformin HCl 1000 MG Metformin HCl 1000 MG 06/18/2020 12:00:00 AM EDT 1.0 {tablet_with_a_meal} active Metformin HCl 1000 MG eCW1 ([facility]) Metformin hydrochloride 1000 MG Oral Tablet Metformin HCl 1000 MG Metformin HCl 1000 MG 06/18/2020 12:00:00 AM EDT 1.0 {tablet_with_a_meal} active Metformin HCl 1000 MG eCW1 ([facility]) Metformin hydrochloride 1000 MG Oral Tablet Metformin HCl 1000 MG Metformin HCl 1000 MG 06/18/2020 12:00:00 AM EDT 1.0 {tablet_with_a_meal} active Metformin HCl 1000 MG eCW1 ([facility]) Metformin hydrochloride 1000 MG Oral Tablet Metformin HCl 1000 MG Metformin HCl 1000 MG 06/18/2020 12:00:00 AM EDT 1.0 {tablet_with_a_meal} active Metformin HCl 1000 MG eCW1 ([facility]) Metformin hydrochloride 1000 MG Oral Tablet Metformin HCl 1000 MG Metformin HCl 1000 MG 06/18/2020 12:00:00 AM EDT 1.0 {tablet_with_a_meal} active Metformin HCl 1000 MG eCW1 ([facility]) Metformin hydrochloride 1000 MG Oral Tablet Metformin HCl 1000 MG Metformin HCl 1000 MG 06/18/2020 12:00:00 AM EDT 1.0 {tablet_with_a_meal} active Metformin HCl 1000 MG eCW1 ([facility]) Prednisone 50 MG Oral Tablet PredniSONE 50 MG PredniSONE 50 MG 05/20/2020 12:00:00 AM EDT 1.0 {tablet} active Pr edniSONE 50 MG eCW1 ([facility]) Prednisone 50 MG Oral Tablet PredniSONE 50 MG PredniSONE 50 MG 05/20/2020 12:00:00 AM EDT 1.0 {tablet} active Pr edniSONE 50 MG eCW1 ([facility]) Prednisone 50 MG Oral Tablet PredniSONE 50 MG PredniSONE 50 MG 05/20/2020 12:00:00 AM EDT 1.0 {tablet} active Pr edniSONE 50 MG eCW1 ([facility]) Prednisone 50 MG Oral Tablet PredniSONE 50 MG PredniSONE 50 MG 05/20/2020 12:00:00 AM EDT 1.0 {tablet} active Pr edniSONE 50 MG eCW1 ([facility]) Metformin hydrochloride 500 MG Oral Tablet Metformin H Cl 500 MG Metformin HCl 500 MG 03/14/2020 12:00:00 AM EDT 1.0 {tablet_with_a_meal} active Metformin HCl 500 MG eCW1 ([facility]) Metformin hydrochloride 500 MG Oral Tablet Metformin H Cl 500 MG Metformin HCl 500 MG 03/14/2020 12:00:00 AM EDT 1.0 {tablet_with_a_meal} active Metformin HCl 500 MG eCW1 ([facility]) Metformin hydrochloride 500 MG Oral Tablet Metformin H Cl 500 MG Metformin HCl 500 MG 03/14/2020 12:00:00 AM EDT 1.0 {tablet_with_a_meal} active Metformin HCl 500 MG eCW1 ([facility]) Metformin hydrochloride 500 MG Oral Tablet Metformin H Cl 500 MG Metformin HCl 500 MG 03/14/2020 12:00:00 AM EDT 1.0 {tablet_with_a_meal} active Metformin HCl 500 MG eCW1 ([facility]) Metformin hydrochloride 500 MG Oral Tablet Metformin H Cl 500 MG Metformin HCl 500 MG 03/14/2020 12:00:00 AM EDT 1.0 {tablet_with_a_meal} active Metformin HCl 500 MG eCW1 ([facility]) Metformin hydrochloride 500 MG Oral Tablet Metformin H Cl 500 MG Metformin HCl 500 MG 03/14/2020 12:00:00 AM EDT 1.0 {tablet_with_a_meal} active Metformin HCl 500 MG eCW1 ([facility]) Metformin hydrochloride 500 MG Oral Tablet Metformin H Cl 500 MG Metformin HCl 500 MG 03/14/2020 12:00:00 AM EDT 1.0 {tablet_with_a_meal} active Metformin HCl 500 MG eCW1 ([facility]) Metformin hydrochloride 500 MG Oral Tablet Metformin H Cl 500 MG Metformin HCl 500 MG 03/14/2020 12:00:00 AM EDT 1.0 {tablet_with_a_meal} active Metformin HCl 500 MG eCW1 ([facility]) Metformin hydrochloride 500 MG Oral Tablet Metformin H Cl 500 MG Metformin HCl 500 MG 03/14/2020 12:00:00 AM EDT 1.0 {tablet_with_a_meal} active Metformin HCl 500 MG eCW1 ([facility]) Metformin hydrochloride 500 MG Oral Tablet Metformin H Cl 500 MG Metformin HCl 500 MG 03/14/2020 12:00:00 AM EDT 1.0 {tablet_with_a_meal} active Metformin HCl 500 MG eCW1 ([facility]) Metformin hydrochloride 500 MG Oral Tablet Metformin H Cl 500 MG Metformin HCl 500 MG 03/14/2020 12:00:00 AM EDT 1.0 {tablet_with_a_meal} active Metformin HCl 500 MG eCW1 ([facility]) Lisinopril 10 MG Oral Tablet Lisinopril 10 MG 02/07/2020 12:00:00 A M EDT 1.0 {tablet} active Lisinopril 10 MG eCW1 ( [facility]) Insurance Providers Payer name Policy type / Coverage type Policy ID Covered libertarian ID Covered libertarian's relationship to segundo Policy Segundo Plan Information [employer] 302/307 [id number] SP [id number] BLUE CROSS [id number] S [id number] BLUE CROSS [id number] S [id number] [place] 302/307 [id number] SP [id number] EXCELLUS BCBS B [id number] S [id number] SELF PAY ONLY [id number] SP [id number] [place] [id number] S [id number] BCBS [facility] 303/803 [id number] SP [id number] BCBS [facility] [facility] 303/803 [id number] SP [id number] BCBS [facility] [facility] 303/803 [id number] SP [id number] BLUE CROSS [id number] S [id number] BATH MIXER [id number] S [id number] ANSI-Commercial [id number] ANSI-Commercial [id number] ANSI-Commercial [id number] [facility] WORK[facility]'S [id number] S [id number] BLUE CROSS [id number] S [id number] BLUE CROSS [id number] S [id number] BLUE CROSS [id number] S [id number] Problems, Conditions, and Diagnoses Code Display Name Description Problem Type Effective Dates Data Source(s) N39.0 Urinary tract infectious disease UTI (urinary tract in fection) Problem 09/05/2020 12:00:00 AM EST eCW1 ([facility]) Z01.818 Pre-procedure evaluation check Preop testing Problem 09/05/2020 12:00:00 AM EST eCW1 ([facility]) C61 Prostate cancer Prostate cancer Problem 09/01/2020 12:0 0:00 AM EST eCW1 ([facility]) R97.20 [id number] Raised prostate specific antigen Problem 07/16/2020 12:00:00 AM EST [facility] ([facility]) N32.0 [id number] Bladder outflow obstruction Problem 07/16/20 12:00:00 AM EST [facility] ([facility]) E78.5 [id number] Dyslipidemia Problem 03/14/2020 12:00:00 AM EDT [facility] ([facility]) E11.9 [id number] Type 2 diabetes kenny itus without complication, without long-term current use of insulin Problem 03/14/2020 12:00:00 AM EDT [facility] ([facility]) Z01.818 Encounter for other preprocedural examin ation ENCOUNTER FOR OTHER PREPROCEDURAL EXAMIN Diagnosis 10/13/2020 04:30:00 PM EST [facility] Z20.822 CONTACT WITH AND (SUSPECTED) EXPOSURE TO COVID-19 CONTACT WITH AND (SUSPECTED) EXPOSURE TO COVID-19 Diagnosis 10/10/2020 10:32:00 AM [facility] C61 Malignant neoplasm of prostate MALIGNANT NEOPLASM OF P ROSTATE Diagnosis 09/25/2020 08:15:00 AM [facility] E11.9 Type 2 diabetes mellitus without complic ations TYPE 2 DIABETES MELLITUS WITHOUT COMPLICATIONS Diagnosis 09/25/2020 08:15:00 AM [facility] Z91.09 Other allergy status, other than to drug s and biological substances OTH ALLERGY STATUS, OTH THAN TO DRUGS AND BIOLG LOPEZ Diagnosis 020 09:47:00 AM EDT [facility] Z23 Encounter for immunization ENCOUNTER FOR IMMUNIZATION Diagnosis 06/13/2020 09:47:00 AM EDT [facility] R97.20 ELEVATED PROSTATE SPECIFIC ANTIGEN [PSA] ELEVATED PROSTATE SPECIFIC ANTIGEN [PSA] Diagnosis 06/13/2020 09:47:[facility] E[facility].5 Hyperlipidemia, unspecified HYPERLIPIDEMIA, UNSPECIFIE D Diagnosis 06/13/2020 09:47:00 AM T [facility] E55.9 Vitamin D deficiency, unspecified VITAMIN D DEFI CIENCY, UNSPECIFIED Diagnosis 06/13/2020 09:47:00 AM EDT [facility] R79.89 Other specified abnormal findings of blo od chemistry OTHER SPECIFIED ABNORMAL FINDINGS OF BLO Diagnosis 06/13/2020 09:47:00 AM EDT [facility] I10 Essential (primary) hypertension ESSENTIAL (PRIMARY) H YPERTENSION Diagnosis 06/13/2020 09:47:00 AM EDT [facility] R21 Rash and other nonspecific skin eruption RASH AND OTHER NONSPECIFIC SKIN ERUPTION Diagnosis 05/20/2020 03:52:00 PM [facility] Z12.5 Encounter for screening for malignant ne oplasm of prostate ENCOUNTER FOR SCREENING FOR MALIGNANT NEOPLASM OF Diagnosis 03/14/2020 08:42:00 AM E DT [facility] Z79.899 Other jail (current) drug therapy 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) 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 Diagnosis 02/07/2020 09:33:00 AM EDT [place] [facility] Sur[facility]/Procedures Procedure Description Date Indications Data Source(s) [id number] 06/23/2020 12:00:00 AM EST [facility] Venipuncture 06/13/2020 12:00:00 AM EDT eCW1 ([facility]) Results ID Date Data Source [id number] 10/13/2020 07:22:00 PM EST Sandra pinto Exam Number: [id number], FRONTAL AND LATERALDATE OF EXAMINATION: 10/13/2020 17:02 ESTCHEST, TWO VIEWSINDICATION: Preoperative chest x-rayCOMPARISON: 02/05/2006TECHNIQUE: Frontal and lateral views of the chest were obtained.FINDINGS: There are degenerative changes of the thoracic spine withosteophyte formation mild disc narrowing at several levels. The aortais tortuous. The chest wall and mediastinal structures are otherwiseunremarkable. There is no pleural disease. The lungs are clear.IMPRESSION: No acute pulmonary diseaseElectronically signed in PS360 by: José Pedraza M.D. 10/13/2020 19:09EST Reported By: - JOSÉ PEDRAZA M.D. Signed By: JOSÉ PEDRAZA M.D. Name Value Range Interpretation Code Description Data Rozina rce(s) Supporting Document(s) ID Date Data Source [id number] 10/13/2020 05:43:00 PM EST [facility] What anti-coagulants is pt. on ?? NONE Name Value Range Interpretation Code Description Data Rozina rce(s) Supporting Document(s) INR 0.96 0.91-1.09 [facility] INR THERAPEUTIC RANGES Prophylaxis of ve nous thrombosis ] (high risk surgery) ]Treatment of venous thrombosis ]Treatment of pulmonary embolism ]Prevention of systemic embolism ] 2.0-3.0Tissue heart valves ]Acute myocardial infarction ]Valvular disease ]Atrial fibrillation ]Recurrent systemic embolism ] Mechanical prosthetic heart valves -------- 2.5-3.5 ID Date Data Source [id number] 10/11/2020 04:28:00 PM EST [facility] Name Value Range Interpretation Code Description Data Rozina rce(s) Supporting Document(s) COVID19 RHEONIX Negative NEGATIVE [facility] al The Rheonix COVID-19 MDx Assay is an end point RT-PCR assayintended for the qualitative detection of nucleic acid [id number]-1 virus. Positive results are indicative of thepresence of SARS-CoV-2 RNA; clinical correlation withpatient history and other diagnostic information isnecessary to determine patient infection status. Negativeresults do not preclude SARS-CoV-2 infection and should notbe used as the sole basis for patient management decisions. The Rheonix MDx Assay is only for use under the Food andDrug Administration's Emergency Use Authorization. ID Date Data Source [id number] 09/25/2020 04:12:00 PM EST [place] [facility] Exam Number: [id number] Reported By: - RACQUEL JUSTICE MD Signed By: RACQUEL JUSTICE MD Name Value Range Interpretation Code Description Data [facility] rce(s) Supporting Document(s) ID Date Data Source [id number] 09/25/2020 04:42:00 PM EST [facility] Name Value Range Interpretation Code Description Data [facility] rce(s) Supporting Document(s) WBC 9.55 x10E3/uL 4.0-10.5 [facility] RBC 5.17 x10E6/uL 4.70-6.00 [facility] Hemoglobin 15.2 g/dL 14.0-18.0 [facility] Hematocrit 45.5 % 42.0-52.0 [facility] MCV 88.0 fL 81.0-99.0 [facility] MCH 29.4 pg 27.0-31.0 [facility] MCHC 33.4 g/dL 32.7-35.6 [facility] RDW 13.4 % 11.5-14.0 [facility] Platelet count 239 x10E3/uL 150-450 [facility] ital MPV 10.6 fl 6.9-9.5 H [facility] Neutrophils 56.5 % 34-64 [facility] Lymphocytes 29.9 % 25-45 [facility] Monocytes 7.0 % 1.7-10.6 [facility] Eosinophils 5.2 % 0.4-7.0 [facility] Basophils 1.2 % 0.1-2.0 [facility] Imm. Gran. 0.2 % 0.1-2.0 [facility] Abs. Neutro. 5.39 x10E3/uL 1.2-7.6 [facility]. Lymph. 2.86 x10E3/uL 1.0-3.5 N [place] [facility] Abs. Ciales. 0.67 x10E3/uL 0.1-1.0 [facility]. Eosin. 0.50 x10E3/uL 0.1-0.7 [facility] Abs. Baso. 0.11 x10E3/uL 0.0-0.1 [facility] [place] [facility] Abs. Imm. Gran. 0.02 x10E3/uL 0.0-0.1 [facility] spital ANRBC% 0 % 0 [facility] ID Date Data Source [id number] 09/25/2020 04:11:00 PM EST [place] [facility] Name Value Range Interpretation Code Description Data Rozina rce(s) Supporting Document(s) GLU 195 mg/dL 70-110 H [facility] Patients taking Sulfasalazine may have f alsely depressedGlucose levels. Patients taking Sulfapyridine may havefalsely elevated Glucose levels. Patients should be drawnfor Glucose before the initial administration of eitherdrug. BUN 18 mg/dL 7-23 [facility] CRE 0.997 mg/dL 0.500-1.300 [facility] GFR > 60 mL/min [facility] CHLORIDE 104 mmol/L 99-110 [facility] NA 137 mmol/L 136-147 [facility] POTASSIUM 4.4 mmol/L 3.5-5.1 [facility] TCO2 25 mmol/L 20-33 [facility] ANION GAP 12.4 10.0-20.0 [facility] CA 8.8 mg/dL 8.3-10.7 [facility] ID Date Data Source [id number] 09/25/2020 03:12:00 PM EST [facility] Name Value Range Interpretation Code Description Data Rozina rce(s) Supporting Document(s) HbA1C 6.40 % 3.8-5.6 H [facility] Suggested Diagnosis HbA1c% Diabet ic >/= 6.5Prediabetes 5.7%-6.4%Normal < 5.7% ID Date Data Source [id number] 09/25/2020 02:43:00 PM EST [facility] Name Value Range Interpretation Code Description Data Rozina rce(s) Supporting Document(s) FE 67 ug/dL 42-175 [facility] Patients treated with metal-binding drug s(i.e. Deferoxamine) may have depressed iron values aschelated iron may not properly react in the iron assay. UNBOUND IRON BC 221 ug/dL 130-375 N [facility] al TOTAL IRON BC 288.0 ug/dL 250-400 N [facility] al % IRON SAT. 23.2 % 30-35 L [facility] ID Date Data Source CBC 09/25/2020 12:00:00 AM EST eCW1 ([facility]) Name Value Range Interpretation Code Description Data Rozina rce(s) Supporting Document(s) 9.55 4.0-10.5 WBC eCW1 ([facility]) 5.17 4.70-6.00 RBC eCW1 ([facility]) 15.2 14.0-18.0 Hemoglobin eCW1 ([facility]) 88.0 81.0-99.0 MCV eCW1 ([facility]) 29.4 27.0-31.0 MCH eCW1 ([facility]) 45.5 42.0-52.0 Hematocrit eCW1 ([facility]) 33.4 32.7-35.6 MCHC eCW1 ([facility]) 13.4 11.5-14.0 RDW eCW1 ([facility]) 239 150-450 Platelet count eCW1 ([facility]) 10.6 6.9-9.5 MPV eCW1 ([facility]) 29.9 25-45 Lymphocytes eCW1 ([facility]) 56.5 34-64 Neutrophils eCW1 ([facility]) 1.2 0.1-2.0 Basophils eCW1 ([facility]) 0.2 0.1-2.0 Imm. Gran. eCW1 ([facility]) 5.2 0.4-7.0 Eosinophils eCW1 ([facility]) 7.0 1.7-10.6 Monocytes eCW1 ([facility]) 5.39 1.2-7.6 Abs. Neutro. eCW1 ([facility]) 0.67 0.1-1.0 Abs. Ciales. eCW1 ([facility]) 0.11 0.0-0.1 Abs. Baso. eCW1 ([facility]) 0.50 0.1-0.7 Abs. Eosin. eCW1 ([facility]) 2.86 1.0-3.5 Abs. Lymph. eCW1 ([facility]) 0.02 0.0-0.1 Abs. Imm. Gran. eCW1 ([facility]) 0 0 ANRBC% eCW1 ([facility]) ID Date Data Source EKG [id number] 09/25/2020 12:00:00 AM EST eCW1 ([facility]) Name Value Range Interpretation Code Description Data Rozina rce(s) Supporting Document(s) EKG [id number] eCW1 ([facility]) ID Date Data Source [id number] 09/25/2020 12:00:00 AM EST eCW1 ([facility]) Name Value Range Interpretation Code Description Data Rozina rce(s) Supporting Document(s) Hemoglobin A1c/Hemoglobin.total in Blood by HPLC 6.40 3.8-5.6 HbA1C eCW1 ([facility]) ID Date Data Source CHEM 7 PROFILE 09/25/2020 12:00:00 AM EST eCW1 ([facility]) Name Value Range Interpretation Code Description Data Rozina rce(s) Supporting Document(s) 195 70-110 GLU eCW1 ([facility]) 0.997 0.500-1.300 CRE eCW1 ([facility]) 18 7-23 BUN eCW1 ([facility]) > 60 GFR eCW1 ([facility]) 104 99-110 CHLORIDE eCW1 ([facility]) 4.4 3.5-5.1 POTASSIUM eCW1 ([facility]) 137 136-147 NA eCW1 ([facility]) 25 20-33 TCO2 eCW1 ([facility]) 12.4 10.0-20.0 ANION GAP eCW1 ([facility]) 8.8 8.3-10.7 CA eCW1 ([facility]) ID Date Data Source [id number] 08/05/2020 08:36:00 AM EST [facility] Name Value Range Interpretation Code Description Data Rozina rce(s) Supporting Document(s) SARS-CoV-2 KADE result NotDetected Normal (applies to non-n umeric results) [facility] This nucleic acid amplification test was developed and its performance characteristics determined by [employer]. Nucleic acid amplification tests include PCR and TMA. This test has not been FDA cleared or approved. This test has been authorized by FDA under an Emergency Use Authorization (EUA). This test is only authorized for the duration of time the declaration that circumstances exist justifying the authorization of the emergency use of in vitro diagnostic tests for detection of SARS-CoV-2 virus and/or diagnosis of COVID-19 infection under section 564(b)(1) of the Act, 21 U.S.C. 360bbb-3(b) (1), unless the authorization is terminated or revoked sooner. When diagnostic testing is negative, the possibility of a false negative result should be considered in the context of a patient's recent exposures and the presence of clinical signs and symptoms consistent with COVID-19. An individual without symptoms of COVID-19 and who is not shedding SARS-CoV-2 virus would expect to have a negative (not detected) result in this assay. Performed at: [address] [id number] Engineering Project Manager: Tami Norton MD, Phone: [phone] ID Date Data Source FREE T3, SERUM 06/16/2020 10:47:57 AM EDT eCW1 ([facility]) Name Value Range Interpretation Code Description Data Rozina rce(s) Supporting Document(s) 3.0 FREE T3, SERUM eCW1 ([facility]) ID Date Data Source [id number] 06/15/2020 07:22:00 AM EDT [facility] [facility] Performed at: [address] [id number] Director: Tami Norton MD, Phone: [phone] Name Value Range Interpretation Code Description Data Rozina rce(s) Supporting Document(s) FREE T3, SERUM 3.0 pg/mL 2.0-4.4 [facility] ID Date Data Source [id number] 06/13/2020 03:38:00 PM EDT [facility] Name Value Range Interpretation Code Description Data Rozina rce(s) Supporting Document(s) FT4 0.80 ng/dL 0.76-1.46 [facility] ID Date Data Source [id number] 06/13/2020 03:38:00 PM EDT [facility] Name Value Range Interpretation Code Description Data Rozina rce(s) Supporting Document(s) USTSH 3.03 uIU/mL 0.270-4.200 [facility] ID Date Data Source [id number] 06/13/2020 03:14:00 PM EDT [facility] bl[facility] Name Value Range Interpretation Code Description Data Rozina rce(s) Supporting Document(s) HbA1C 6.90 % 3.8-5.6 H [facility] Suggested Diagnosis HbA1c% Diabet ic >/= 6.5Prediabetes 5.7%-6.4%Normal < 5.7% ID Date Data Source [id number] 06/13/2020 03:07:00 PM EDT [facility] Name Value Range Interpretation Code Description Data Rozina rce(s) Supporting Document(s) GLU 162 mg/dL 70-110 H [facility] Patients taking Sulfasalazine may have f alsely depressedGlucose levels. Patients taking Sulfapyridine may havefalsely elevated Glucose levels. Patients should be drawnfor Glucose before the initial administration of eitherdrug. BUN 18 mg/dL 7-23 [facility] CRE 0.888 mg/dL 0.500-1.300 [facility] GFR > 60 mL/min [facility] CHLORIDE 106 mmol/L 99-110 [facility] NA 139 mmol/L 136-147 [facility] POTASSIUM 4.5 mmol/L 3.5-5.1 [facility] TCO2 27 mmol/L 20-33 [facility] ANION GAP 10.5 10.0-20.0 [facility] CA 8.6 mg/dL 8.3-10.7 [facility] ID Date Data Source [id number] 06/13/2020 01:52:00 PM EDT [facility] Name Value Range Interpretation Code Description Data Rozina rce(s) Supporting Document(s) ALBUMIN,URINE 5.3 mg/L 5-17 [facility] MICROALB/CREAT 5.0 mg/g CR 0-30 [facility] CREAT. URINE 104.0 mg/dL N [facility] l ID Date Data Source FREE T4 06/13/2020 04:43:36 AM EDT eCW1 ([facility]) Name Value Range Interpretation Code Description Data Rozina rce(s) Supporting Document(s) 0.80 FT4 eCW1 ([facility]) ID Date Data Source TSH Thyroid Stimulating Hormone 06/13/2020 04:43:36 AM EDT e CW1 ([facility]) Name Value Range Interpretation Code Description Data Rozina rce(s) Supporting Document(s) Thyrotropin [Units/volume] in Serum or Plasma by Detec tion limit <= 0.005 mIU/L 3.03 USTSH eCW1 ([facility]) ID Date Data Source MICROALBUMIN/CREATININE RATIO 06/13/2020 03:01:41 AM EDT eCW 1 ([facility]) Name Value Range Interpretation Code Description Data Rozina rce(s) Supporting Document(s) 104.0 CREAT. URINE eCW1 ([facility]) 5.0 MICROALB/CREAT eCW1 ([facility]) 5.3 ALBUMIN,URINE eCW1 ([facility]) ID Date Data Source [id number] 03/14/2020 01:32:00 PM EDT [facility] Is this an ANNUAL SCREENING TEST? Y Name Value Range Interpretation Code Description Data Rozina rce(s) Supporting Document(s) PSA SCREEN 6.200 ng/mL 0.000-4.000 H [facility] l PSA ASSAY SHOULD NOT BE USED A CANCER SCREENING TEST FIELD MERCHANDISER: SIEMENS [place] 500TEST METHODOLOGY: CHEMILUMINESCENT LOCI METHOD VALUES OBTAINED FROM DIFFERENT ASSAY METHODS OR KITS CANNOTBE USED INTERCHANGEABLY ID Date Data Source [id number] 03/14/2020 01:31:00 PM EDT [place] [facility] Name Value Range Interpretation Code Description Data Rozina rce(s) Supporting Document(s) GLU 176 mg/dL 70-110 H [facility] Patients taking Sulfasalazine may have f alsely depressedGlucose levels. Patients taking Sulfapyridine may havefalsely elevated Glucose levels. Patients should be drawnfor Glucose before the initial administration of eitherdrug. BUN 15 mg/dL 7-23 [facility] CRE 0.874 mg/dL 0.500-1.300 [facility] GFR > 60 mL/min [facility] CHLORIDE 108 mmol/L 99-110 [facility] NA 139 mmol/L 136-147 [facility] POTASSIUM 4.3 mmol/L 3.5-5.1 [facility] TCO2 22 mmol/L 20-33 [facility] ANION GAP 13.3 10.0-20.0 [facility] CA 8.8 mg/dL 8.3-10.7 [facility] ALKALINE PHOS 117 U/L 45-117 [facility] TP 7.5 g/dL 6.0-7.8 [facility] ALB 3.7 g/dL 3.5-5.0 [facility] ESRD Dialysis patient Albumin reference range: 2.9-4.4 g/dL GL 3.8 g/dL 2.3-3.5 [facility] A/G 1.0 1.0-2.5 [facility] T. BILIRUBIN 0.7 mg/dL 0.1-1.1 [facility] [employer] [place] Total Bilirubin is n ot recommended forpatients undergoing treatment with eltrombopag (Promacta)due to the potential for falsely elevated results. ALTI 63 U/L 6-54 H [facility] Patients taking Sulfasalazine and/or Sul fapyridine may havefalsely depressed ALT levels. Patients should be drawn forALT before the initial administration of either drug. AST 74 U/L 8-40 H [facility] Patients taking Sulfasalazine and/or Sul fapyridine may havefalsely depressed AST levels. Patients should be drawn forAST before the initial administration of either drug. ID Date Data Source CMP COMPREHENSIVE METABOLIC PROFILE 03/14/2020 02:35:03 AM E DT eCW1 ([facility]) Name Value Range Interpretation Code Description Data Rozina rce(s) Supporting Document(s) 176 GLU eCW1 ([facility]) 108 CHLORIDE eCW1 ([facility]) 0.874 CRE eCW1 ([facility]) 15 BUN eCW1 ([facility]) > 60 GFR eCW1 ([facility]) 22 TCO2 eCW1 ([facility]) 13.3 ANION GAP eCW1 ([facility]) 4.3 POTASSIUM eCW1 ([facility]) 139 NA eCW1 ([facility]) 117 ALKALINE PHOS eCW1 ([facility]) 7.5 TP eCW1 ([facility]) 8.8 CA eCW1 ([facility]) 3.7 ALB eCW1 ([facility]) 0.7 T. BILIRUBIN eCW1 ([facility]) 3.8 GL eCW1 ([facility]) 1.0 A/G eCW1 ([facility]) 63 ALTI eCW1 ([facility]) 74 AST eCW1 ([facility]) ID Date Data Source [id number] 02/07/2020 02:56:00 PM EDT [facility] Name Value Range Interpretation Code Description Data Rozina rce(s) Supporting Document(s) VITAMIN D 25 30 ng/mL 30-100 N [facility] ID Date Data Source [id number] 02/07/2020 02:27:00 PM EDT [facility] Name Value Range Interpretation Code Description Data Rozina rce(s) Supporting Document(s) HbA1C 7.10 % 3.8-5.6 H [facility] Please note: new test methodology requ ired change inreference range effective 01/25/20 ID Date Data Source [id number] 02/07/2020 02:16:00 PM EDT [facility] Name Value Range Interpretation Code Description Data Rozina rce(s) Supporting Document(s) USTSH 4.770 uIU/mL 0.270-4.200 [facility] l ID Date Data Source [id number] 02/07/2020 01:56:00 PM EDT [facility] Name Value Range Interpretation Code Description Data Rozina rce(s) Supporting Document(s) GLU 172 mg/dL 70-110 H [facility] Patients taking Sulfasalazine may have f alsely depressedGlucose levels. Patients taking Sulfapyridine may havefalsely elevated Glucose levels. Patients should be drawnfor Glucose before the initial administration of eitherdrug. BUN 16 mg/dL 7-23 [facility] CRE 0.922 mg/dL 0.500-1.300 [facility] GFR > 60 mL/min [facility] CHLORIDE 105 mmol/L 99-110 [facility] NA 138 mmol/L 136-147 [facility] POTASSIUM 4.5 mmol/L 3.5-5.1 [facility] TCO2 27 mmol/L 20-33 [facility] ANION GAP 10.5 10.0-20.0 [facility] CA 8.8 mg/dL 8.3-10.7 [facility] ALKALINE PHOS 93 U/L 45-117 [facility] TP 7.5 g/dL 6.0-7.8 [facility] ALB 3.7 g/dL 3.5-5.0 [facility] ESRD Dialysis patient Albumin reference range: 2.9-4.4 g/dL GL 3.8 g/dL 2.3-3.5 [facility] A/G 1.0 1.0-2.5 [facility] T. BILIRUBIN 1.3 mg/dL 0.1-1.1 [facility] [employer] [place] Total Bilirubin is n ot recommended forpatients undergoing treatment with eltrombopag (Promacta)due to the potential for falsely elevated results. ALTI 58 U/L 6-54 [facility] Patients taking Sulfasalazine and/or Sul fapyridine may havefalsely depressed ALT levels. Patients should be drawn forALT before the initial administration of either drug. AST 62 U/L 8-40 H [facility] Patients taking Sulfasalazine and/or Sul fapyridine may havefalsely depressed AST levels. Patients should be drawn forAST before the initial administration of either drug. ID Date Data Source [id number] 02/07/2020 01:56:00 PM [facility] Name Value Range Interpretation Code Description Data Rozina rce(s) Supporting Document(s) CHOL 153 mg/dL 100-200 [facility] TRIG 69 mg/dL 30-190 [facility] HDL 71 mg/dL 35-65 [facility] LDL DIRECT 85 mg/dL 0-100 [facility] VLDL 0 mg/dL 0-100 [facility] ID Date Data Source [id number] 02/07/2020 01:30:00 PM EDT [facility] Name Value Range Interpretation Code Description Data Rozina rce(s) Supporting Document(s) WBC 8.77 x10E3/uL 4.0-10.5 [facility] RBC 5.53 x10E6/uL 4.70-6.00 [facility] Hemoglobin 15.8 g/dL 14.0-18.0 [facility] Hematocrit 47.6 % 42.0-52.0 [facility] MCV 86.1 fL 81.0-99.0 [facility] MCH 28.6 pg 27.0-31.0 [facility] MCHC 33.2 g/dL 32.7-35.6 [facility] RDW 13.5 % 11.5-14.0 [facility] Platelet count 250 x10E3/uL 150-450 [facility] ital MPV 10.5 fl 6.9-9.5 H [facility] Neutrophils 56.9 % 34-64 [facility] Lymphocytes 27.8 % 25-45 [facility] Monocytes 8.9 % 1.7-10.6 [facility] Eosinophils 5.4 % 0.4-7.0 [facility] Basophils 0.7 % 0.1-2.0 [facility] Imm. Gran. 0.3 % 0.1-2.0 [facility] Abs. Neutro. 5.0 x10E3/uL 1.2-7.6 [facility] Lymph. 2.4 x10E3/uL 1.0-3.5 [facility] Abs. Ciales. 0.8 x10E3/uL 0.1-1.0 N [facility] Abs. Eosin. 0.5 x10E3/uL 0.1-0.7 [facility] Abs. Baso. 0.1 x10E3/uL 0.0-0.1 N [facility] Abs. Imm. Gran. 0.0 x10E3/uL 0.0-0.1 [facility] ANRBC% 0 % 0 [facility] Procedure Social History Code Duration Value Status Description Data Source(s ) Smoking 09/01/2020 12:00:00 AM EST Never Smoker completed Never S moker eCW1 ([facility]) Smoking 09/01/2020 12:00:00 AM EST Never Smoker completed Never S moker eCW1 ([facility]) Smoking 09/01/2020 12:00:00 AM EST Never Smoker completed Never S moker eCW1 ([facility]) Smoking 07/16/2020 12:00:00 AM EST Never Smoker completed Never S moker eCW1 ([facility]) Smoking 07/16/2020 12:00:00 AM EST Never Smoker completed Never S moker eCW1 ([facility]) Smoking 07/16/2020 12:00:00 AM EST Never Smoker completed Never S moker eCW1 ([facility]) Smoking 07/16/2020 12:00:00 AM EST Never Smoker completed Never S moker eCW1 ([facility]) Vital Signs ID Date Data Source UNK Name Value Range Interpretation Code Description Data Source(s) Diastolic blood pressure 76 mm[Hg] 76 mm[Hg] eCW1 ([facility]) Systolic blood pressure 122 mm[Hg] 122 mm[Hg] e CW1 ([facility]) Oxygen saturation in Arterial blood by Pulse oximetry 96 % 96 % eCW1 ([facility]) Respiratory rate 18 /min 18 /min eCW1 ([facility]) Heart rate 88 /min 88 /min eCW1 ([facility]) Body temperature 97.8 [degF] 97.8 [degF] eCW1 ( [facility]) Body mass index (BMI) [Ratio] 42.91 kg/m2 42.91 kg/m2 eCW1 ([facility]) Body weight 124.29 kg 124.29 kg eCW1 ([facility]) Body weight 274 [lb_av] 274 [lb_av] eCW1 ([facility]) Body height 170.18 cm 170.18 cm [facility]1 [facility] [facility] Body height 67 [in_i] 67 [in_i] eCW1 ([facility]) Diastolic blood pressure 89 mm[Hg] 89 mm[Hg] eCW1 ([facility]) Systolic blood pressure 132 mm[Hg] 132 mm[Hg] e CW1 ([facility]) Body temperature 97.4 [degF] 97.4 [degF] eCW1 ( [facility]) Respiratory rate 18 /min 18 /min eCW1 ([facility]) Heart rate 88 /min 88 /min eCW1 ([facility]) Body mass index (BMI) [Ratio] 41.56 kg/m2 41.56 kg/m2 W1 ([facility]) Body height 67 [in_i] 67 [in_i] eCW1 ([facility]) Body weight 265.4 [lb_av] 265.4 [lb_av] eCW1 ([facility]) Diastolic blood pressure 78 mm[Hg] 78 mm[Hg] eCW1 ([facility]) Systolic blood pressure 130 mm[Hg] 130 mm[Hg] e CW1 ([facility]) Body temperature 97.0 [degF] 97.0 [degF] eCW1 ( [facility]) Respiratory rate 18 /min 18 /min eCW1 ([facility]) Heart rate 96 /min 96 /min eCW1 ([facility]) Body mass index (BMI) [Ratio] 41.66 kg/m2 41.66 kg/m2 eCW1 ([facility]) Body height 67 [in_i] 67 [in_i] eCW1 ([facility]) Body weight 266 [lb_av] 266 [lb_av] eCW1 ([facility]) Diastolic blood pressure 78 mm[Hg] 78 mm[Hg] eCW1 ([facility]) Systolic blood pressure 126 mm[Hg] 126 mm[Hg] e CW1 ([facility]) Oxygen saturation in Arterial blood by Pulse oximetry 97 % 97 % eCW1 ([facility]) Respiratory rate 16 /min 16 /min eCW1 ([facility]) Heart rate 78 /min 78 /min eCW1 ([facility]) Body temperature 98.4 [degF] 98.4 [degF] eCW1 ( [facility]) Body mass index (BMI) [Ratio] 43.22 kg/m2 43.22 kg/m2 eCW1 ([facility]) Body weight 125.19 kg 125.19 kg W1 ([facility]) Body weight 276 [lb_av] 276 [lb_av] eCW1 ([facility]) Body height 170.18 cm 170.18 cm W1 ([facility]) Body height 67 [in_i] 67 [in_i] eCW1 ([facility]) Diastolic blood pressure 86 mm[Hg] 86 mm[Hg] eCW1 ([facility]) Systolic blood pressure 128 mm[Hg] 128 mm[Hg] e CW1 ([facility]) Oxygen saturation in Arterial blood by Pulse oximetry 96 % 96 % eCW1 ([facility]) Respiratory rate 16 /min 16 /min eCW1 ([facility]) Heart rate 94 /min 94 /min eCW1 ([facility]) Body temperature 98.6 [degF] 98.6 [degF] eCW1 ( [facility]) Body mass index (BMI) [Ratio] 43.22 kg/m2 43.22 kg/m2 eCW1 ([facility]) Body weight 125.19 kg 125.19 kg eCW1 ([facility]) Body weight 276 [lb_av] 276 [lb_av] eCW1 ([facility]) Body height 170.18 cm 170.18 cm eCW1 ([facility]) Body height 67 [in_i] 67 [in_i] eCW1 ([facility]) Diastolic blood pressure 82 mm[Hg] 82 mm[Hg] eCW1 ([facility]) Systolic blood pressure 136 mm[Hg] 136 mm[Hg] e CW1 ([facility]) Oxygen saturation in Arterial blood by Pulse oximetry 97 % 97 % eCW1 ([facility]) Respiratory rate 16 /min 16 /min eCW1 ([facility]) Heart rate 82 /min 82 /min eCW1 ([facility]) Body temperature 98.0 [degF] 98.0 [degF] eCW1 ( [facility]) Body mass index (BMI) [Ratio] 43.69 kg/m2 43.69 kg/m2 eCW1 ([facility]) Body weight 126.55 kg 126.55 kg eCW1 ([facility]) Body weight 279 [lb_av] 279 [lb_av] eCW1 ([facility]) Body height 170.18 cm 170.18 cm W1 ([facility]) Body height 67 [in_i] 67 [in_i] eCW1 ([facility]) Diastolic blood pressure 84 mm[Hg] 84 mm[Hg] eCW1 ([facility]) Systolic blood pressure 136 mm[Hg] 136 mm[Hg] e CW1 ([facility]) Oxygen saturation in Arterial blood by Pulse oximetry 97 % 97 % eCW1 ([facility]) Respiratory rate 16 /min 16 /min eCW1 ([facility]) Heart rate 86 /min 86 /min eCW1 ([facility]) Body temperature 98.3 [degF] 98.3 [degF] eCW1 ( [facility]) Body mass index (BMI) [Ratio] 43.69 kg/m2 43.69 kg/m2 eCW1 ([facility]) Body weight 126.55 kg 126.55 kg eCW1 ([facility]) Body weight 279 [lb_av] 279 [lb_av] eCW1 ([facility]) Body height 170.18 cm 170.18 cm eCW1 ([facility]) Body height 67 [in_i] 67 [in_i] eCW1 ([facility]) Patient Treatment Plan of Care Planned Activity Planned Date Details Description Data Source (s) Sulfamethoxazole 800 MG / Trimethoprim 160 MG Oral Tab let [Bactrim] 07/25/2020 12:00:00 AM EST eCW1 ([facility]) Sulfamethoxazole 800 MG / Trimethoprim 160 MG Oral Tab let [Bactrim] 07/25/2020 12:00:00 AM EST eCW1 ([facility]) Sulfamethoxazole 800 MG / Trimethoprim 160 MG Oral Tab let [Bactrim] 07/25/2020 12:00:00 AM EST eCW1 ([facility]) Sulfamethoxazole 800 MG / Trimethoprim 160 MG Oral Tab let [Bactrim] 07/25/2020 12:00:00 AM EST eCW1 ([facility]) Metformin hydrochloride 1000 MG Oral Tablet 06/18/2020 12:00:00 AM EDT eCW1 ([facility]) Metformin hydrochloride 1000 MG Oral Tablet 06/18/2020 12:00:00 AM EDT eCW1 ([facility]) Metformin hydrochloride 1000 MG Oral Tablet 06/18/2020 12:00:00 AM EDT eCW1 ([facility]) Metformin hydrochloride 1000 MG Oral Tablet 06/18/2020 12:00:00 AM EDT eCW1 ([facility]) Prednisone 50 MG Oral Tablet 05/20/2020 12:00:00 AM EDT eCW1 ([facility]) Prednisone 50 MG Oral Tablet 05/20/2020 12:00:00 AM EDT eCW1 ([facility]) Prednisone 50 MG Oral Tablet 05/20/2020 12:00:00 AM EDT eCW1 ([facility]) Prednisone 50 MG Oral Tablet 05/20/2020 12:00:00 AM EDT eCW1 ([facility]) Metformin hydrochloride 500 MG Oral Tablet 03/14/2020 12:00:00 AM E DT eCW1 ([facility]) Metformin hydrochloride 500 MG Oral Tablet 03/14/2020 12:00:00 AM E DT eCW1 ([facility]) Metformin hydrochloride 500 MG Oral Tablet 03/14/2020 12:00:00 AM E DT eCW1 ([facility]) Lisinopril 10 MG Oral Tablet 02/07/2020 12:00:00 AM EDT eCW1 ([facility])
--- OUTSIDE RECORDS SUMMARY | 2020-10-15 10:41 | CCD ---
Author Author 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 Name Role Phone Makenzie Tripathi Unavailable PROBLEMS Type Condition ICD9-CM Code [id number] Code Onset Dates Condition S tatus SNOMED Code Notes Problem Diverticulitis K57.92 Active 604795055 Problem Type 2 diabetes mellitus wit hout complication, without long-term current use of insulin E11.9 Active 383289562 Problem Dyslipidemia E78.5 Active 765091272 Problem Acute back pain M54.9 Active 308561682 Problem Environmental allergies Z91.09 Active 96887481 7 Problem Essential hypertension I10 Active 31123051 Problem Vitamin D deficiency E55.9 Active 23281244 ALLERGIES Allergen (clinical drug ingredient) Drug/Non Drug Allergy do cumented on EMR Reaction Allergy Type Onset Date Status Woll Unknown Non Drug Allergy Active ENCOUNTERS from 1966 to 2020-09-12 Encounter Location Date Provider Diagnosis [address] [id number] Aug, Makenzie Pruitt-Emery IMMUNIZATIONS Vaccine Route Administration Date Status Influenza [...] Notes Start Da te End Date Status Metformin HCl 500 MG 1 tablet with a meal Orally twice a day for 90 days Feb, Active Metformin HCl 1000 MG 1 tablet with a meal Orally twice a day fo r 30 day(s) May, Active Lisinopril 10 MG 1 tablet Orally Once a day for 90 days Active PROCEDURES No Information RESULTS No Results REASON FOR VISIT pre op/appt tomorrow MEDICAL (GENERAL) HISTORY Type Description Date Medical History Environmental allergies Medical History Diverticulitis Medical History Hypertension Surgical History Appendectomy Surgical History Colon resection Hospitalization History See surgical list Goals Section No Information Health Concerns No Information MEDICAL EQUIPMENT No Information MENTAL STATUS No Information FUNCTIONAL STATUS No Information ASSESSMENTS No Information PLAN OF TREATMENT Medication Medication Name Sig Start Date Stop Date Metformin HCl 1000 MG 1 tablet with a meal Orally twice a da y for 30 day(s) May, Next Appt Details Provider Name:Yola Andre, 2020-09-25 07:30:00 AM, [address] [place] [address], [id number], Insurance Providers Payer Name Payer Address Payer Phone Insured Name Patient Relati onship to Insured Coverage Start Date Coverage End Date [facility] [address] [address] [place] [id number] IRINA ROTHMAN AEHorace T self
[2020-10-15] MEDS ORDERED: LIDOCAINE 1% SDV 30ML VIAL As Ordered ONE (15:14)
[2020-10-15] MEDS ORDERED: BUPIVACAINE HCL 0.25% 30ML VIAL As Ordered ONE (15:14)
[2020-10-15] MEDS ORDERED: NS 1,000 ML IV SCH (15:46)
[2020-10-15] MEDS ORDERED: dexameTHASONE 4 MG/ML 1ML VIAL (J1100 PER 1MG) As Ordered ONE (15:48)
[2020-10-15] MEDS ORDERED: PERCOCET 5MG/325MG TAB PO PRN (15:50)
[2020-10-15] MEDS ORDERED: ONDANSETRON 4MG/2ML VIAL IV PRN ×2 (15:50→22:20)
[2020-10-15] MEDS ORDERED: MORPHINE 2 MG/ML 1ML VIAL (J2270) IV PRN (15:50)
[2020-10-15] MEDS ORDERED: PHENYLephrine 500MCG 5ML (100MCG/ML) SYRINGE As Ordered ONE (15:54)
[2020-10-15] MEDS ORDERED: VECURONIUM BROMIDE 10MG VIAL As Ordered ONE (16:05)
[2020-10-15] MEDS ORDERED: HYDROmorphone HCL 2 MG/ML 1ML VIAL (J1170) As Ordered ONE (16:06)
[2020-10-15] MEDS ORDERED: ACETAMINOPHEN 1000MG 100ML IV BTL (OFIRMEV) (J0131 PER 10MG) As Ordered ONE (16:12)
[2020-10-15] MEDS ORDERED: ONDANSETRON 4MG/2ML VIAL As Ordered ONE (16:12)
[2020-10-15] MEDS ORDERED: METOCLOPRAMIDE INJ 10MG/2ML VIAL (J2765 PER 1) As Ordered ONE (16:12)
[2020-10-15] MEDS ORDERED: fentaNYL 100 MCG/2 ML INJECTION (J3010) As Ordered ONE (21:16)
--- NOTE | 2020-10-15 21:49 | ROOPDOC ---
[facility] Report Of Operation Report of Operation DATE OF PROCEDURE: 10/15/20 PREPROCEDURE DIAGNOSES: Prostate Cancer. POSTPROCEDURE DIAGNOSES: Prostate Cancer. PROCEDURE: Robotic-assisted Laparoscopic Radical Prostatectomy. SURGEON: Adiel Jefferson MD ENGLISH TUTOR: None ANESTHESIA: General. OPERATIVE INDICATIONS: This is a 54 year old male with clinical T1c [place] 3+3 prostate cancer, here today for treatment. DESCRIPTION OF PROCEDURE: The patient was brought to the operating room and general anesthesia was induced. Prophylactic antibiotics were infused. He was then placed in the supine position and prepped and draped in the usual sterile fashion. At this point, a Delgado catheter was inserted into the bladder and the balloon was filled with 10 mL of sterile water. We then made a midline incision just above the umbilicus for an 8 mm port. A Veress needle was utilized to achieve pneumoperitoneum. Next, an 8 mm port was inserted into the incision and subsequently a camera was inserted. There were no injuries from the Veress needle or initial trocar placement. Then three robotic ports were placed in the usual configuration in line just below the level of the umbilicus. A 12 mm assistant head cashier port was inserted lateral to the camera port. The robot was then docked. Lysis of adhesions between the sigmoid colon and abdominal wall was then performed. The bladder was then released from the anterior abdominal wall using electrocautery. Once the bladder was dropped, the fat overlying the prostate was cleared using electrocautery. The superficial dorsal vein was controlled with electrocautery. The endopelvic fascia was opened on both sides and the dorsal venous complex was cleared. Next, a #0 Vicryl [id number] stitch was placed around the dorsal venous complex. Once that was done, the bladder was opened and dissected away from the prostate. At this point, the prostate was lifted up. The vasa deferentia were identified in the midline. They were controlled with electrocautery and then transected. The seminal vesicles were also dissected bilaterally. At this point I dissected off the left neurovascular bundle using cold scissors. I then ligated and transected bilateral prostatic pedicles using the SyncrhoSeal. The pedicles were carried towards the apex. After taking care of the pedicles the dorsal venous complex was transected with electrocautery. The urethra was transected. The prostate was then mobilized off the rectum using cold scissors. At this point, we checked for hemostasis and it appeared very good. Once hemostasis was confirmed, I then moved on to perform the vesicourethral anastomosis. The vesicourethral anastomosis was performed in running fashion using a Quill stitch. Once this was done, the final #20-[place] Islander Delgado catheter was placed. The balloon was filled with 15 mL of sterile water. Upon completion of the vesicourethral anastomosis, it was tested by filling the bladder with saline. The anastomosis appeared to be watertight. At this point, the prostate and seminal vesicles were placed in an Endo Catch bag for future retrieval. A Kevin-Vázquez drain was brought in through the left robotic port skin site and the drain was positioned anterior to the bladder. The robot was then undocked. A Reji fascial closure device was utilized to place a #0 Vicryl suture through the fascia of the 12 mm assistant head cashier port. The drain was secured to the skin with #2-0 Ethilon suture. The prostate was then extracted from the camera port site after the skin was extended. The fascia in this incision was then closed with a running #0 Vicryl stitch. Next, all the remaining ports were removed and there did not appear to be any bleeding from any of the port sites. The previously placed #0 Vicryl free ties through the assistant head cashier port were then tied down and all incisions were irrigated. Last, all of the incisions were closed with running subcuticular #4-0 Monocryl sutures. Local anesthesia was applied. Dermabond was then applied to the incisions. This marked the conclusion of the procedure. The patient was then awakened from anesthesia and transported to the recovery room in stable condition. ESTIMATED BLOOD LOSS: 750 mL. COMPLICATIONS: None. SPECIMENS: Prostate and seminal vesicles. PLAN: The patient will be admitted to the hospital postoperatively, and he will likely be discharged home within the next 1-2 days. ADIEL JEFFERSON MD Oct 15, 2020 15:57
[2020-10-15] MEDS ORDERED: oxyCODONE 5MG TAB As Ordered ONE (22:06)
[2020-10-15] MEDS ORDERED: HYDROMORPHONE HCL 0.5 MG/ 0.5 ML SYRINGE (J1170 PER 1) IV PRN (22:20)
[2020-10-15] MEDS ORDERED: oxyCODONE 5MG TAB PO PRN (22:20)
[2020-10-15] MEDS ORDERED: METOCLOPRAMIDE INJ 10MG/2ML VIAL (J2765 PER 1) IV PRN (22:20)
[2020-10-15] MEDS ORDERED: fentaNYL 100 MCG/2 ML INJECTION (J3010) IV PRN (22:20)
[2020-10-15] MEDS ORDERED: LR 1,000 ML IV SCH (22:20)
[2020-10-15 22:24] LABS: HEMOGLOBIN 15.7 g/dl (13.5-17.5); MEAN CORPUSCULAR HEMOGLOBIN 29.6 pg (27.0-33.0); MEAN CORPUSCULAR HGB CONC 32.7 g/dl (32.0-36.5); MEAN CORPUSCULAR VOLUME 90.4 fl (80.0-96.0); PLATELET COUNT, AUTOMATED 365 10^3/uL (150-450); RED BLOOD COUNT 5.31 10^6/uL (4.30-6.10); WHITE BLOOD COUNT 23.5 10^3/uL (4.0-10.0)
[2020-10-15 22:42] LABS: BLOOD UREA NITROGEN 22 MG/DL (7-18); CALCIUM LEVEL 8.6 MG/DL (8.5-10.1); CARBON DIOXIDE LEVEL 27 MEQ/L (21-32); CHLORIDE LEVEL 103 MEQ/L (98-107); CREATININE FOR GFR 1.28 MG/DL (0.70-1.30); GLOMERULAR FILTRATION RATE > 60.0 (>56); GLUCOSE, FASTING 216 MG/DL (70-100); POTASSIUM SERUM 4.5 MEQ/L (3.5-5.1); SODIUM LEVEL 137 MEQ/L (136-145)
[2020-10-15] MEDS: HEPARIN SOD (PORCINE) 5000UNITS/ML 1ML VIAL/SYRINGE SC SCH (22:51)
[2020-10-15] MEDS: DOCUSATE SODIUM 100MG CAPSULE PO SCH (22:51)
[2020-10-15] MEDS: ceFAZolin SOD 1 GM in D5W MINI-BAG PLUS 50 ML IV SCH (22:51)
[2020-10-15 23:00] VITALS: BP 132/80
[2020-10-15 23:30] VITALS: BP 128/78
[2020-10-16 00:30] VITALS: BP 124/77
[2020-10-16] MEDS: ACETAMINOPHEN TAB 650MG DOSE (2X325MG) PO PRN ×2 (04:23→16:12)
[2020-10-16] MEDS: HEPARIN SOD (PORCINE) 5000UNITS/ML 1ML VIAL/SYRINGE SC SCH ×3 (04:24→20:37)
[2020-10-16 06:00] VITALS: BP 102/66
[2020-10-16 06:57] LABS: HEMATOCRIT 39.8 % (42.0-52.0); HEMOGLOBIN 13.3 g/dl (13.5-17.5); MEAN CORPUSCULAR HEMOGLOBIN 29.6 pg (27.0-33.0); MEAN CORPUSCULAR HGB CONC 33.4 g/dl (32.0-36.5); MEAN CORPUSCULAR VOLUME 88.4 fl (80.0-96.0); PLATELET COUNT, AUTOMATED 318 10^3/uL (150-450)
[2020-10-16 07:20] LABS: BLOOD UREA NITROGEN 27 MG/DL (7-18); CALCIUM LEVEL 8.3 MG/DL (8.5-10.1); CARBON DIOXIDE LEVEL 23 MEQ/L (21-32); CHLORIDE LEVEL 103 MEQ/L (98-107); CREATININE FOR GFR 1.29 MG/DL (0.70-1.30); GLOMERULAR FILTRATION RATE > 60.0 (>56); GLUCOSE, FASTING 259 MG/DL (70-100); POTASSIUM SERUM 4.4 MEQ/L (3.5-5.1); SODIUM LEVEL 133 MEQ/L (136-145)
--- NOTE | 2020-10-16 08:09 | IPNPDOC ---
Subjective Review oF Systems Chief Complaint The patient is a 54-year-old male admitted with a reason for visit of Prostate Cancer. Events since Last Encounter No acute events o/n. Good pain control. No n/v. Has not ambulated yet. No f/c/ns. Objective Physical Examination General Exam: Alert, Cooperative, No Acute Distress ABDOMEN EXAM: Soft, Tenderness (mild), Other (incisions clean/dry/intact; ZORAN w/o serosanguinous output) Skin Exam: Nl turgor and temperature Neuro Exam: Normal Speech Psych Exam: Mental status NL, Mood NL Other physical findings catheter draining tea colored urine Vital Signs/I&O Vital Signs Date Time Temp Pulse Resp B/P (MAP) Pulse Ox O2 Delivery O2 Flow Rate FiO2 10/16/20 06:00 97.4 101 20 102/66 (78) 92 Nasal Cannula 2.0 I&O- Last 24 Hours up to 6 AM 10/16/20 06:00 Intake Total 2876 ml Output Total 1410 ml Balance 1466 ml Laboratory Data Labs 24H Laboratory Tests 2 10/15/20 11:08: Bedside Glucose (Misc Panel) 121H 10/15/20 21:52: Nucleated Red Blood Cells % (auto) 0.0, Anion Gap 7L, Glomerular Filtration Rate > 60.0, Calcium Level 8.6 10/16/20 06:34: Nucleated Red Blood Cells % (auto) 0.0, Anion Gap 7L, Glomerular Filtration Rate > 60.0, Calcium Level 8.3L CBC/BMP Laboratory Tests 10/15/20 21:52 10/16/20 06:34 FSBS Laboratory Tests Test 10/15/20 11:08 Range/Units Bedside Glucose (Misc Panel) 121 70-105 MG/DL Assessment/Plan Date Seen The patient was seen on 10/16/20. Patient Summary This is a 54 y/o M POD1 s/p RALP w/ BPLND. Doing well. Hb down a little this morning. Cr stable. Good UOP. Plan/VTE VTE Prophylaxis Ordered?: Yes VTE Exclusion Mechanical Proph: N/A:VTE Prophy Ordered VTE Exclusion Pharmacological: N/A:VTE Prophy Ordered Plan/Urinary Catheter Urinary Catheter: Other Catheter: (catheter needs to stay in for at least 7 days for healing of vesicourethral anastomosis) Plan - percocet prn pain - strict I/Os - ambulate - check CBC this afternoon - SCDs when in bed - SQH - incentive spirometry - advance diet as tolerated ADIEL JEFFERSON MD Oct 16, 2020 08:09
[2020-10-16] MEDS: ceFAZolin SOD 1 GM in D5W MINI-BAG PLUS 50 ML IV SCH (08:11)
[2020-10-16 09:00] VITALS: BP 100/60
[2020-10-16] MEDS: DOCUSATE SODIUM 100MG CAPSULE PO SCH ×2 (09:47→20:37)
[2020-10-16 13:06] LABS: HEMATOCRIT 38.2 % (42.0-52.0); HEMOGLOBIN 12.4 g/dl (13.5-17.5); MEAN CORPUSCULAR HGB CONC 32.5 g/dl (32.0-36.5); MEAN CORPUSCULAR VOLUME 89.5 fl (80.0-96.0); PLATELET COUNT, AUTOMATED 302 10^3/uL (150-450); RED BLOOD COUNT 4.27 10^6/uL (4.30-6.10); WHITE BLOOD COUNT 20.9 10^3/uL (4.0-10.0)
[2020-10-16 15:06] VITALS: BP 101/64
[2020-10-16] MEDS: CIPROFLOXACIN 500MG TABLET PO SCH (18:02)
[2020-10-16 20:39] VITALS: BP 120/81
[2020-10-16] MEDS: PERCOCET 5MG/325MG TAB PO PRN (20:40)
[2020-10-16 22:00] VITALS: BP 120/81
[2020-10-17] MEDS: CIPROFLOXACIN 500MG TABLET PO SCH (04:53)
[2020-10-17] MEDS: PERCOCET 5MG/325MG TAB PO PRN (04:53)
[2020-10-17] MEDS: HEPARIN SOD (PORCINE) 5000UNITS/ML 1ML VIAL/SYRINGE SC SCH (04:53)
[2020-10-17 06:00] VITALS: BP 122/72
[2020-10-17 07:50] LABS: HEMATOCRIT 37.5 % (42.0-52.0); HEMOGLOBIN 12.2 g/dl (13.5-17.5); MEAN CORPUSCULAR HEMOGLOBIN 28.9 pg (27.0-33.0); MEAN CORPUSCULAR HGB CONC 32.5 g/dl (32.0-36.5); MEAN CORPUSCULAR VOLUME 88.9 fl (80.0-96.0); PLATELET COUNT, AUTOMATED 278 10^3/uL (150-450); RED BLOOD COUNT 4.22 10^6/uL (4.30-6.10)
[2020-10-17 08:11] LABS: BLOOD UREA NITROGEN 25 MG/DL (7-18); CARBON DIOXIDE LEVEL 26 MEQ/L (21-32); CHLORIDE LEVEL 103 MEQ/L (98-107); CREATININE FOR GFR 1.01 MG/DL (0.70-1.30); GLOMERULAR FILTRATION RATE > 60.0 (>56); GLUCOSE, FASTING 158 MG/DL (70-100); POTASSIUM SERUM 4.4 MEQ/L (3.5-5.1); SODIUM LEVEL 135 MEQ/L (136-145)
[2020-10-17] MEDS: DOCUSATE SODIUM 100MG CAPSULE PO SCH (08:36)
--- NOTE | 2020-10-17 09:54 | IPNPDOC ---
Subjective Review oF Systems Chief Complaint The patient is a 54-year-old male admitted with a reason for visit of Prostate Cancer. Events since Last Encounter No acute events o/n. Patient feels much better today. Passing flatus. No n/v. Good pain control. Ambulating well. No f/c/ns. Objective Physical Examination General Exam: Alert, Cooperative, No Acute Distress ABDOMEN EXAM: Soft, Tenderness (mild), Other (incisions clean/dry/intact; ZORAN w/ serous output) Skin Exam: Nl turgor and temperature Neuro Exam: Normal Speech Psych Exam: Mental status NL, Mood NL Other physical findings catheter draining clear yellow urine Vital Signs/I&O Vital Signs Date Time Temp Pulse Resp B/P (MAP) Pulse Ox O2 Delivery O2 Flow Rate FiO2 10/17/20 06:00 98.7 79 20 122/72 (89) 95 Room Air 10/16/20 06:00 2.0 I&O- Last 24 Hours up to 6 AM 10/17/20 06:00 Intake Total 1840 ml Output Total 880 ml Balance 960 ml Laboratory Data Labs 24H Laboratory Tests 2 10/16/20 12:36: Nucleated Red Blood Cells % (auto) 0.0 10/16/20 17:05: Bedside Glucose (Misc Panel) 191H 10/17/20 07:15: Nucleated Red Blood Cells % (auto) 0.0, Anion Gap 6L, Glomerular Filtration Rate > 60.0, Calcium Level 8.0L CBC/BMP Laboratory Tests 10/16/20 12:36 10/17/20 07:15 FSBS Laboratory Tests Test 10/16/20 17:05 Range/Units Bedside Glucose (Misc Panel) 191 70-105 MG/DL Assessment/Plan Date Seen The patient was seen on 10/17/20. Patient Summary This is a 54 y/o M POD2 s/p RALP. His Hb is stable. Still has a leukocytosis but starting to trend down. No fevers. Plan/VTE VTE Prophylaxis Ordered?: Yes VTE Exclusion Mechanical Proph: N/A:VTE Prophy Ordered VTE Exclusion Pharmacological: N/A:VTE Prophy Ordered Plan/Urinary Catheter Urinary Catheter: Other Catheter: (catheter needs to stay in for at least 7 d ays for healing of vesicourethral anastomosis) Plan - d/c ZORAN - percocet prn pain - ambulate - SCDs when in bed - SQH - incentive spirometry - regular diet - discharge home today w/ ADIEL Ramos MD Oct 17, 2020 09:54
[2020-10-17 10:00] VITALS: BP 120/80
[2020-10-17] MEDS ORDERED: CIPR-249 PO (10:00)
[2020-10-17] MEDS ORDERED: DOK1CAP7 PO (10:00)
[2020-10-17] MEDS ORDERED: PERCOCET PO (10:00)
--- NOTE | 2020-10-20 08:19 | DSES ---
DISCHARGE SUMMARY DATE OF ADMISSION: 10/15/2020 DATE OF DISCHARGE: 10/17/2020 ADMISSION DIAGNOSIS: Prostate cancer. DISCHARGE DIAGNOSIS: Prostate cancer. ADMITTING PHYSICIAN: Jose Silva MD DISCHARGE PHYSICIAN: Jose Silva MD PROCEDURE PERFORMED: Robotic-assisted laparoscopic radical prostatectomy on October 15, 2020. HISTORY OF PRESENT ILLNESS: This is a 54-year-old male with low-risk prostate cancer who elected to undergo the above procedure for treatment. He was admitted to the hospital postoperatively. HOSPITALIZATION COURSE: The patient was admitted to the hospital on October 15, 2020 after undergoing a robotic radical prostatectomy. On postoperative day one, he was noted to have a leukocytosis with a white blood cell count being 18. He had no fevers. His hemoglobin level did drop to 13.3 on postoperative day one from 15.7. I rechecked his labs that afternoon of postoperative day one and his white count went up to 20.9 and his hemoglobin level was 12.4. We, therefore, decided to monitor him for the rest of the day. He started ambulating on postoperative day one and did so without difficulty. He had good pain control. His diet was slowly advanced. On postoperative day two, he noted that he felt very well. His white blood cell count came down some to 18. He was still afebrile. His hemoglobin level remained stable at 12.2. On postoperative day two, he was having excellent output from his catheter and output from his Kevin-Vázquez drain had slowed down significantly. His abdominal exam was unremarkable and he was going great ambulating. Since he was improving clinically and felt well, he was deemed ready for discharge home. He was therefore discharged home on postoperative day two. His Kevin-Vázquez drain was removed prior to discharge. He was discharged home with his catheter in place with the plan for him to follow up in the urology clinic in approximately one week for catheter removal and postoperative check. CARMINA
== END 2020-10-17 13:20 | disposition home or self-care (01) | DRG 484 ==
LOC: M OR 10:34 → M MS5PR 22:38
PROVIDERS: ADMIT Urology; ATTEND Urology
PROC: 8E0W4CZ Robotic Assisted Procedure of Trunk Region, Percutaneous Endoscopic Approach (ICD-10-PCS; 2020-10-15)
PROC: 0VT04ZZ Resection of Prostate, Percutaneous Endoscopic Approach (ICD-10-PCS; principal; 2020-10-15 12:25)
DX: C61 Malignant neoplasm of prostate (principal); I10 Essential (primary) hypertension; Z79.899 Other long term (current) drug therapy; E11.9 Type 2 diabetes mellitus without complications; K57.30 Diverticulosis of large intestine without perforation or abscess without bleeding; E78.5 Hyperlipidemia, unspecified

== ENCOUNTER → 2020-10-23 | Outpatient (REF) | payer BC ==
[~2020-10-23] MED LIST changes: +CIPR-249 PO; +DOK1CAP7 PO; -HEPARIN SOD (PORCINE) 5000UNITS/ML 1ML VIAL/SYRINGE SQ ONE; -LR 1,000 ML IV ONE; +PERCOCET PO; -ceFAZolin SOD 2 GM in IV 1 EA IV ONE
[2020-10-23 13:22] LABS: HEMATOCRIT 40.2 % (42.0-52.0); MEAN CORPUSCULAR HEMOGLOBIN 29.1 pg (27.0-33.0); MEAN CORPUSCULAR HGB CONC 32.3 g/dl (32.0-36.5); MEAN CORPUSCULAR VOLUME 90.1 fl (80.0-96.0); PLATELET COUNT, AUTOMATED 373 10^3/uL (150-450); RED BLOOD COUNT 4.46 10^6/uL (4.30-6.10); WHITE BLOOD COUNT 13.3 10^3/uL (4.0-10.0)
[2020-10-23 14:02] LABS: BLOOD UREA NITROGEN 20 MG/DL (7-18); CALCIUM LEVEL 9.2 MG/DL (8.5-10.1); CARBON DIOXIDE LEVEL 28 MEQ/L (21-32); CHLORIDE LEVEL 102 MEQ/L (98-107); CREATININE FOR GFR 0.99 MG/DL (0.70-1.30); GLOMERULAR FILTRATION RATE > 60.0 (>56); GLUCOSE, FASTING 133 MG/DL (70-100); POTASSIUM SERUM 4.6 MEQ/L (3.5-5.1); SODIUM LEVEL 136 MEQ/L (136-145)
== END ==
LOC: M SMT 12:55
PROVIDERS: ATTEND Urology
DX: C61 Malignant neoplasm of prostate (principal)

== ENCOUNTER → 2024-09-12 | Outpatient (CLI) | payer OTHER ==
[~2024-09-12] MED LIST changes: +DOK1CAP4 PO; -DOK1CAP7 PO
== END ==
LOC: M PLAIMG 15:00
PROVIDERS: ATTEND Physician Assistant Surgical
DX: M19.011 Primary osteoarthritis, right shoulder (principal); M75.01 Adhesive capsulitis of right shoulder; M75.111 Incomplete rotator cuff tear or rupture of right shoulder, not specified as traumatic